=== PATIENT | female | born 1980 | race African-American/Black ===

== ENCOUNTER 2016-04-23 17:27 | Emergency (ER) | payer MEDICAID ==
[2016-04-23 17:42] VITALS: BP 122/64
[2016-04-23] MEDS ORDERED: ONDANSETRON 4 MG TAB.RAPDIS PO ONE (18:07)
--- NOTE | 2016-04-23 18:07 | ER Document Report ---
ED Medical Screen (RME) - General Stated Complaint: VOMITING Mode of Arrival: Ambulatory Information source: Patient Notes: Patient claims of nausea and vomiting since yesterday. Diarrhea started today. Patient does complain of some left-sided abdominal pain. No urinary symptoms. hx: Anemia, endometriosis I have greeted and performed a rapid initial assessment of this patient. A comprehensive ED assessment and evaluation of the patient, analysis of test results and completion of the medical decision making process will be conducted by additional ED providers. TRAVEL OUTSIDE OF THE [place] IN LAST 30 DAYS: No - Related Data Allergies/Adverse Reactions: latex [Latex] Allergy (Severe, Verified 04/23/16 18:04) contact dermatitis Penicillins Allergy (Severe, Verified 04/23/16 18:04) Edema erythromycin base Allergy (Verified 04/23/16 18:07) levofloxacin [From Levaquin] Allergy (Verified 04/23/16 18:04) strawberry Allergy (Verified 04/23/16 18:04) Past Medical History - Past Medical History Cardiac Medical History: Denies: Hx Coronary Artery Disease, Hx Heart Attack, Hx Hypertension Pulmonary Medical History: Denies: Hx Asthma, Hx Bronchitis, Hx COPD, Hx Pneumonia Neurological Medical History: Denies: Hx Cerebrovascular Accident, Hx Seizures Endocrine Medical History: Denies: Hx Diabetes Mellitus Type 1, Hx Diabetes Mellitus Type 2 Musculoskeltal Medical History: Denies Hx Arthritis Past Surgical History: Reports: Hx Gynecologic Surgery - Lap x 2 - Immunizations Hx Diphtheria, Pertussis, Tetanus Vaccination: Yes Physical Exam - Vital signs Vitals: Temp Pulse Resp BP Pulse Ox 98.2 F 66 22 H 122/64 100 04/23/16 17:39 04/23/16 17:39 04/23/16 17:39 04/23/16 17:39 04/23/16 17:39 - Abdominal Tenderness: Tender - Left lateral abdomen Course - Vital Signs Vital signs: Temp Pulse Resp BP Pulse Ox 98.2 F 66 22 H 122/64 100 04/23/16 17:39 04/23/16 17:39 04/23/16 17:39 04/23/16 17:39 04/23/16 17:39
[2016-04-23 19:07] LABS: ABSOLUTE EOSINOPHILS # (AUTO) 0.3 10^3/uL (0.0-0.6); ABSOLUTE LYMPHOCYTES (AUTO) 1.6 10^3/uL (0.5-4.7); ABSOLUTE MONOCYTES (AUTO) 0.6 10^3/uL (0.1-1.4); ABSOLUTE NEUT (AUTO) 3.7 10^3/uL (1.7-8.2); BASOPHILS % (AUTO) 0.6 % (0-2); EOSINOPHILS % (AUTO) 4.2 % (0-6); MEAN CORPUSCULAR HEMOGLOBIN 22.3 pg (27.0-33.4); MEAN CORPUSCULAR HGB CONC 31.1 g/dL (32.0-36.0); MEAN CORPUSCULAR VOLUME 72 fl (80-97); MONOCYTES % (AUTO) 9.6 % (3-13); RED BLOOD COUNT 4.47 10^6/uL (3.72-5.28); RED CELL DISTRIBUTION WIDTH 18.7 % (11.5-14.0); SEGMENTED NEUTROPHILS % (AUTO) 59.6 % (42-78); WHITE BLOOD COUNT 6.3 10^3/uL (4.0-10.5)
[2016-04-23 19:19] LABS: APPEARANCE,URINE CLEAR; BILIRUBIN,URINE NEGATIVE (NEGATIVE); GLUCOSE, URINE NEGATIVE (NEGATIVE); KETONES,URINE NEGATIVE (NEGATIVE); LEUKOCYTE ESTERASE,URINE NEGATIVE (NEGATIVE); NITRITE,URINE NEGATIVE (NEGATIVE); PROTEIN,URINE NEGATIVE (NEGATIVE); URINE SPECIFIC GRAVITY 1.016; UROBILINOGEN,URINE NEGATIVE mg/dL (<2.0)
[2016-04-23 19:29] LABS: ALANINE AMINOTRANSFERASE 20 U/L (9-52); ALBUMIN 3.7 g/dL (3.5-5.0); ALKALINE PHOSPHATASE 96 U/L (38-126); ANION GAP 8 (5-19); ASPARTATE AMINO TRANSFERASE 26 U/L (14-36); BILIRUBIN,TOTAL 0.4 mg/dL (0.2-1.3); BLOOD UREA NITROGEN 10 mg/dL (7-20); CALCIUM 9.5 mg/dL (8.4-10.2); CARBON DIOXIDE 30 mmol/L (22-30); CHLORIDE 100 mmol/L (98-107); CREATININE RESULT 0.79 mg/dL (0.52-1.25); GLUCOSE 83 mg/dL (75-110); LIPASE 32.2 U/L (23-300); POTASSIUM 4.1 mmol/L (3.6-5.0); SODIUM 138.3 mmol/L (137-145); TOTAL PROTEIN 7.1 g/dL (6.3-8.2)
[2016-04-23 21:16] LABS: URINE BARBITURATES SCREEN NEGATIVE; URINE METHADONE SCREEN NEGATIVE; URINE PHENCYCLIDINE SCREEN NEGATIVE
--- NOTE | 2016-04-23 21:23 | ER Document Report ---
ED GI/ - General Mode of Arrival: Ambulatory Information source: Patient TRAVEL OUTSIDE OF THE [place] IN LAST 30 DAYS: No - HPI Patient complains to provider of: Other - see narrative Associated symptoms: Other - see narrative Similar symptoms previously: Yes <PAULA PATTERSON - Last Filed: 04/23/16 23:31> <YUE FLOYD - Last Filed: 04/25/16 01:30> - General Chief Complaint: Nausea/Vomiting Stated Complaint: VOMITING Notes: Patient is a 35-year-old female that presents to the emergency department today with complaints of nausea, vomiting, and one episode of diarrhea which began approximately 3 days ago. Patient states 3 days ago her symptoms began with nausea however today she had vomit that appeared to be brown in color with associated abdominal pain. Patient states she also has a history of endometriosis so her abdominal pain is somewhat chronic during her menstrual cycle. Patient is being followed by [facility] for her endometriosis. Patient states she called her doctor and the nurse was concerned about the color of the vomit so she was told to come here. Patient appears to be in no distress. (PAULA PATTERSON) - Related Data Allergies/Adverse Reactions: latex [Latex] Allergy (Severe, Verified 04/23/16 18:04) contact dermatitis Penicillins Allergy (Severe, Verified 04/23/16 18:04) Edema erythromycin base Allergy (Verified 04/23/16 18:07) levofloxacin [From Levaquin] Allergy (Verified 04/23/16 18:04) strawberry Allergy (Verified 04/23/16 18:04) Past Medical History - General Information source: Patient - Social History Smoking Status: Never Smoker Cigarette use (# per day): No Chew tobacco use (# tins/day): No Frequency of alcohol use: None Drug Abuse: None Lives with: Family Family History: Reviewed & Not Pertinent Patient has suicidal ideation: No Patient has homicidal ideation: No Past Surgical History: Reports: Hx Gynecologic Surgery - Lap x 2 - Immunizations Hx Diphtheria, Pertussis, Tetanus Vaccination: Yes <PAULA PATTERSON - Last Filed: 04/23/16 23:31> Review of Systems - Review of Systems Constitutional: denies: Fever EENT: No symptoms reported Cardiovascular: No symptoms reported Respiratory: No symptoms reported Gastrointestinal: See HPI, Abdominal pain, Diarrhea, Nausea, Vomiting Genitourinary: No symptoms reported Female Genitourinary: No symptoms reported Musculoskeletal: No symptoms reported Skin: No symptoms reported Hematologic/Lymphatic: No symptoms reported Neurological/Psychological: No symptoms reported -: Yes All other systems reviewed and negative <PAULA PATTERSON - Last Filed: 04/23/16 23:31> Physical Exam <PAULA PATTERSON - Last Filed: 04/23/16 23:31> <YUE FLOYD - Last Filed: 04/25/16 01:30> - Vital signs Vitals: Temp Pulse Resp BP Pulse Ox 98.2 F 66 22 H 122/64 100 04/23/16 17:39 04/23/16 17:39 04/23/16 17:39 04/23/16 17:39 04/23/16 17:39 (PAULA PATTERSON) (YUE FLOYD) - Notes Notes: Physical Exam: General: Alert, appears well. HEENT: Normocephalic. Atraumatic. PERRL. Extraocular movements intact. Oropharynx clear. Broken blood vessels in posterior pharynx, no active bleeding. Neck: Supple. Non-tender. Respiratory: No respiratory distress. Clear and equal breath sounds bilaterally. Cardiovascular: Regular rate and rhythm. Abdominal: Normal Inspection. Non-tender. No distension. Normal Bowel Sounds. Back: Non-tender. No deformity or step off. Extremities: Moves all four extremities. Upper extremities: Normal inspection. Normal ROM. Lower extremities: No edema. Normal ROM. Neurological: Normal cognition. AAOx4. Normal speech. Psychological: Normal affect. Normal Mood. Skin: Warm. Dry. Normal color. (PAULA PATTERSON) Course - Laboratory Result Diagrams: 04/23/16 18:45 04/23/16 18:45 <PAULA PATTERSON - Last Filed: 04/23/16 23:31> - Laboratory Result Diagrams: 04/23/16 18:45 04/23/16 18:45 <YUE FLOYD - Last Filed: 04/25/16 01:30> - Re-evaluation Re-evalutation: 04/23/16 21:26 I personally performed the services described in the documentation, reviewed and edited the documentation which was dictated to my scribe in my presence, and it accurately records my words and actions. Patient presents emergency per with a chief complaint of nausea vomiting and diarrhea. She said she started last night with vomiting had several episodes of vomiting today after retching for 2-3 hours had specks of blood coming up in Center throat hurt. She also states she had initially said she had several episodes of diarrhea then said she had one or 2 episodes of diarrhea. She denies any blood in her stool she is not on blood thinners. On physical examination she is well-appearing nontoxic in no acute distress with stable vital signs. No acute abdominal guarding rebound rigidity pulsatile dullness or hernias. Patient has some broken blood vessels in the back of her throat which are not actively bleeding. Acute laboratory evaluation is negative. She was given 8 of Zofran nurse states no episodes of vomiting while she was in the emergency department. Patient significantly questioning management in terms of asking questions about the blood in the vomit and the color of the moment. I explained to her that after retching you can get torn blood vessels she also has spots in the back of her throat were some blood vessels were broken that can cause specks of bright red blood. She said that her doctor's office was very concerned about that. She said she had vomited she was going to take with her regular doctor's office tomorrow but didn't bring it here. I stated to her that there is a way to check to see if there is blood in there but I did not recommend and that would be doing an NG tube and guaiac. She states that she's having pain in the left side as well that she has a history of chronic endometriosis. I asked her who manages her chronic endometriosis and she [facility] asked her what they treated her with and she said narcotics but it's bad. Despite multiple explanations and spending time with the patient and answering her questions there seems to be a disconnect with her understanding the questions. She seems to be wanting something different or more but I can't ascertain that. She gets very argumentative and says just let me go home. She asks what she can take for her throat and I said you can take Tylenol or Motrin but I would not recommend it due to the vomiting. Patient requesting narcotic pain medication was a do not feel are appropriate in this situation with nausea vomiting diarrhea no acute abdominal findings and negative labs. I did instruct her follow-up with her primary care physician OB/ FL[facility]PERATIONS SPECIALIST physician in one to 2 days and discussed reasons for ED return sooner (YUE FLOYD) - Vital Signs Vital signs: Temp Pulse Resp BP Pulse Ox 98.2 F 66 22 H 122/64 100 04/23/16 17:39 04/23/16 17:39 04/23/16 17:39 04/23/16 17:39 04/23/16 17:39 (PAULA PATTERSON) (YUE FLOYD) - Laboratory Laboratory results interpreted by me: 04/23/16 04/23/16 18:45 18:45 Hgb 10.0 L Hct 32.0 L MCV 72 L MCH 22.3 L MCHC 31.1 L RDW 18.7 H Urine Blood SMALL H (PAULA PATTERSON) (YUE FLOYD) Discharge <PAULA PATTERSON - Last Filed: 04/23/16 23:31> <YUE FLOYD - Last Filed: 04/25/16 01:30> - Discharge Clinical Impression: Vomiting and diarrhea Abdominal pain Qualifiers: Abdominal location: lower abdomen, unspecified Qualified Code(s): R10.30 - Lower abdominal pain, unspecified Condition: Stable Disposition: HOME, SELF-CARE Additional Instructions: Abdominal Pain There are many causes of abdominal pain. Pain can mean a serious problem requiring surgery (such as appendicitis). It can also be an innocent problem that goes away on its own (such as a viral infection). Often, time must pass to determine the cause of pain. The physician does not feel that hospitalization is necessary, at present. Things may change within the next 24 hours. Call the doctor or come back for re- examination if any problems occur, such as: (1) Pain that becomes more severe, steady, or becomes concentrated in one specific area. Also, pain that is more severe with movement or coughing. (2) Vomiting that persists or becomes more frequent. (3) Blood in the vomitus, urine, or bowel movements. Blood in the stool may have a tarry or black appearance. (4) Shaking chills or fever greater than 100 degrees F. (5) The abdomen becomes more distended or swollen. (6) Bowel movements cease. (7) Failure to improve as expected. Vomiting Vomiting can be part of many illnesses. Most cases of vomiting are due to gastroenteritis, usually a viral infection in the intestinal tract. There is no specific treatment. The disease will end by itself. For now, the main danger to your child is dehydration. During the first few hours of the illness, give clear liquids, such as Pedialyte. Try to give small quantities frequently, such as a teaspoon of liquid every minute or about an ounce of fluids every five to ten minutes. Medications may be prescribed by the physician for special cases. After an hour or two of fluids without vomiting, add rice cereal, toast, applesauce, or bananas and other more solid foods to the clear liquids. Call the physician or go to the hospital if vomiting increases or blood appears in the bowel movement or vomitus; if your child fails to improve, or if signs of dehydration occur (no wet diapers for eight to twelve hours, tongue and mouth become dry, not acting as alert as usual). Diarrhea Diarrhea means frequent, watery stools. There are many causes. Any problem that keeps the intestinal tract from absorbing water from the stool can lead to diarrhea. A sudden new diarrhea problem is usually caused by a virus, food sensitivity, toxic bacteria, or drugs. In this case, we expect the problem to go away soon. Testing is done only if you seem seriously ill from the diarrhea. If you have chronic diarrhea, or diarrhea that keeps coming back, we need to find out why. Chronic diarrhea can be due to inflammation of the bowels such as Crohn's disease or ulcerative colitis, food sensitivity such as intolerance to lactose or wheat protein, irritable bowel syndrome, and other problems. If your diarrhea is a significant problem but it's not clear why you have it, we' ll refer you to a specialist for further testing. During an episode of diarrhea, drink small amounts (two to six ounces) of clear liquids (soft drinks, sport drinks, herb teas, broth, etc). Take fluids frequently to prevent dehydration. It's usually not a problem to take mild anti- diarrhea medication such as Kaopectate or Pepto-Bismol. As the diarrhea eases, advance to small amounts of bland food (mashed potato, toast) for 24 hours. Call the physician if blood appears in your vomit or stool, if vomiting lasts longer than 24 hours, if the abdominal pain worsens or becomes localized to one area, if you develop high fever, or if you become lightheaded and weak. Referrals: PRESTON PAYTON MD [Primary Care Provider] - Follow up as needed (in 1-2 days return to er sooner for increasing worsening or new symptoms ) Scribe Documentation - Scribe Written by Scribe:: Agustina Valentino, [id number] 04/23/16 acting as scribe for :: Sky <PAULA PATTERSON - Last Filed: 04/23/16 23:31>
== END 2016-04-23 21:30 | disposition home or self-care (01) ==
LOC: ER 17:27
DX: R10.30 Lower abdominal pain, unspecified (principal); R11.2 Nausea with vomiting, unspecified; R19.7 Diarrhea, unspecified
CPT/HCPCS: 99284; 36415; 83690; 84703; 85025; 80053; 81001; 80307; S0119

== ENCOUNTER 2016-04-24 16:53 | Observation (INO) | payer MEDICAID ==
[2016-04-24] MEDS: NORMAL SALINE 1000 ML 1,000 ML IV PRN (18:18)
[2016-04-24] MEDS ORDERED: INFLUENZA ADLT QUAD (36MOS+) 2016-17 VAC 0.5 ML SYR IM PRN (18:49)
[2016-04-24 19:00] LABS: HEMATOCRIT 31.4 % (36.0-47.0); HEMOGLOBIN 9.3 g/dL (12.0-15.5); HGB HCT DIFFERENCE -3.5; MEAN CORPUSCULAR HEMOGLOBIN 21.6 pg (27.0-33.4); MEAN CORPUSCULAR HGB CONC 29.6 g/dL (32.0-36.0); MEAN CORPUSCULAR VOLUME 73 fl (80-97); RED BLOOD COUNT 4.31 10^6/uL (3.72-5.28); WHITE BLOOD COUNT 7.4 10^3/uL (4.0-10.5)
[2016-04-24 19:07] LABS: ANION GAP 10 (5-19); BLOOD UREA NITROGEN 12 mg/dL (7-20); CALCIUM 9.6 mg/dL (8.4-10.2); CARBON DIOXIDE 28 mmol/L (22-30); CHLORIDE 104 mmol/L (98-107); CREATININE RESULT 0.83 mg/dL (0.52-1.25); GLUCOSE 89 mg/dL (75-110); POTASSIUM 3.7 mmol/L (3.6-5.0); SODIUM 142.1 mmol/L (137-145)
[2016-04-24] MEDS: ONDANSETRON HCL INJ/PF 4 MG/2 ML SDV IV PRN (20:28)
[2016-04-24] MEDS: MORPHINE SULFATE 10 MG/ML INJ IV PRN (22:05)
[2016-04-25] MEDS: NORMAL SALINE 1000 ML 1,000 ML IV PRN (04:44)
[2016-04-25] MEDS: ONDANSETRON HCL INJ/PF 4 MG/2 ML SDV IV PRN ×2 (04:44→13:11)
[2016-04-25] MEDS: MORPHINE SULFATE 10 MG/ML INJ IV PRN ×2 (04:44→11:19)
[2016-04-25] MEDS ORDERED: NALOXONE HCL INJ/PF 0.4 MG/1 ML SDV ONE (17:52)
[2016-04-25] MEDS ORDERED: PROMETHAZINE HCL INJ 25 MG/1 ML VIAL ONE (17:52)
[2016-04-25] MEDS ORDERED: FENTANYL CITRATE INJ/PF 100 MCG/2 ML AMPUL ONE (17:53)
[2016-04-25] MEDS ORDERED: GLUCAGON,HUMAN RECOMB 1 MG INJ ONE (17:53)
[2016-04-25] MEDS ORDERED: EPINEPHRINE INJ 1 MG/10 ML DISP.SYRIN ONE (17:53)
[2016-04-25] MEDS ORDERED: MIDAZOLAM 2 MG/2 ML INJ ONE (17:53)
[2016-04-25] MEDS ORDERED: FLUMAZENIL INJ 0.5 MG/5 ML VIAL IV ONE (17:53)
--- NOTE | 2016-04-25 19:11 | PDOC CONSULTATION ---
Consultation Consult Date: 04/24/16 History of Present Illness Admission Date/PCP: 04/24/16 16:53 PRESTON PriteshLUCINDA, History of Present Illness: This is a 35-year-old patient admitted with coffee-ground emesis and anemia. Patient had been in a fair state of health until 2 days before admission when she started vomiting. She actually had some nausea for about 3 days before vomiting started. She had vomited multiple times and it looked like coffee grounds each time. She has also been having some left upper quadrant pain for the same duration. There was no diarrhea or fever. On admission her hemoglobin was 9.3. She has a chronic history of iron deficiency anemia and her hemoglobin was 9.7 back in December 2015. She had an EGD, colonoscopy, and capsule endoscopy of her small bowel with no significant explanation for her anemia. She has menorrhagia and severe endometriosis. She has not been using any iron supplements but receives B-12 shots. Past Medical History Cardiac Medical History: Denies: Coronary Artery Disease, Myocardial Infarction, Hypertension Pulmonary Medical History: Denies: Asthma, Bronchitis, Chronic Obstructive Pulmonary Disease (COPD), Pneumonia Neurological Medical History: Denies: Seizures Endocrine Medical History: Denies: Diabetes Mellitus Type 1, Diabetes Mellitus Type 2 Musculoskeltal Medical History: Denies: Arthritis Hematology: Reports: Anemia Hematology History Note: Iron deficiency anemia Past Surgical History Past Surgical History: Colonoscopy and EGD in December 2015 Past Surgical History: Denies: Hysterectomy Social History Smoking Status: Never Smoker Frequency of Alcohol Use: None Hx Recreational Drug Use: No Drugs: None Hx Prescription Drug Abuse: No - Advance Directive Resuscitation Status: Full Code Family History Family History: Reviewed & Not Pertinent Parental Family History Reviewed: No Children Family History Reviewed: NA Sibling(s) Family History Reviewed.: NA Medication/Allergy Home Medications: Cetirizine HCl [Zyrtec 10 mg Tablet] 10 mg PO DAILY 04/24/16 Cyclobenzaprine HCl [Flexeril 10 mg Tablet] 10 mg PO Q8HP PRN 04/24/16 Fluocinonide [Lidex] 1 applic TP BID 04/24/16 Hydroxyzine HCl [Atarax 10 mg Tablet] 10 mg PO Q12HP PRN 04/24/16 Naproxen 500 mg PO Q12HP PRN 04/24/16 Allergies/Adverse Reactions: latex [Latex] Allergy (Severe, Verified 04/23/16 18:04) contact dermatitis Penicillins Allergy (Severe, Verified 04/23/16 18:04) Edema erythromycin base Allergy (Verified 04/23/16 18:07) levofloxacin [From Levaquin] Allergy (Verified 04/23/16 18:04) strawberry Allergy (Verified 04/23/16 18:04) Review of Systems All systems: reviewed and no additional remarkable complaints except as stated Physical Exam Vital Signs: Temp Pulse Resp BP Pulse Ox 98.5 F 91 22 H 119/73 100 04/25/16 17:11 04/25/16 18:50 04/25/16 18:50 04/25/16 18:50 04/25/16 18:50 Intake & Output 04/24/16 04/25/16 04/26/16 06:59 06:59 06:59 Intake Total 1660 220 Output Total 300 1200 Balance 1360 -980 Weight 89.2 kg Exam: General: Patient is alert and looks well. HEENT: There is pallor but no jaundice. PERRLA. Oropharynx normal Respiratory: No chest deformity. No respiratory distress. Chest wall palpitation was unremarkable. Breath sounds were normal Cardiovascular: Heart sounds 1 and 2 normal with no murmurs. Abdominal: Not distended. Soft and nontender. Liver and spleen not palpable. No ascites demonstrated. Bowel sounds active. Rectal examination was deferred. Extremities: No edema Neurological: Alert and oriented x4. Grossly nonfocal. Normal speech Skin: No significant rash Psychological: Normal affect Results Laboratory Results: 04/24/16 18:25 04/24/16 18:25 04/24/16 04/24/16 18:25 18:25 WBC 7.4 RBC 4.31 Hgb 9.3 L Hct 31.4 L MCV 73 L MCH 21.6 L MCHC 29.6 L RDW 19.0 H Plt Count 387 Sodium 142.1 Potassium 3.7 Chloride 104 Carbon Dioxide 28 Anion Gap 10 BUN 12 Creatinine 0.83 Est GFR ( Amer) > 60 Est GFR (Non-Af Amer) > 60 Glucose 89 Calcium 9.6 Assessment & Plan - Diagnosis (1) Hematemesis Qualifiers: Nausea presence: with nausea Qualified Code(s): K92.0 - Hematemesis ; R11.0 - Nausea Is this a current diagnosis for this admission?: YesPlan: She did have multiple episodes of vomiting that appeared to be coffee grounds. Her hemoglobin is low but this is not very different from her previous which was 9.6 back in December. Her hemoglobin was 10 one day before admission. Differential diagnoses include esophagitis, Patria-Garland tear, or gastric ulcers. She will undergo an EGD for further evaluation. She will remain on Zofran when necessary (2) Iron deficiency anemia due to chronic blood loss Is this a current diagnosis for this admission?: YesPlan: She needs to be on iron supplements upon discharge. Her ferritin was 12 about 6 months ago and this will be repeated now. She should follow up with her interactive media director (3) Abdominal pain Qualifiers: Abdominal location: lower abdomen, unspecified Qualified Code(s): R10.30 - Lower abdominal pain, unspecified
--- NOTE | 2016-04-25 19:12 | Operative Report ---
Operative Report DATE OF SURGERY: 04/25/16 Operative Report: Pre-op diagnosis: Vomiting and coffee grounds Post-op diagnosis: Antral gastritis Surgery: Esophagogastroduodenoscopy with biopsy Medications: Versed 2 mg Fentanyl 100 mcg IV push Tissue removed: Antral biopsy for pathology Procedure: After informed consent obtained from patient, the throat was sprayed with Hurricane and conscious sedation was achieved. The upper endoscope was inserted into the esophagus under direct vision and advanced into the stomach. The duodenum was entered and examined to the second part. Endoscope was then slowly pulled out of the patient as the mucosa was examined into details. Patient tolerated procedure well. Findings Esophagus: Normal Z-line at: Antrum: Mild erythema Body: Normal Fundus: Normal Duodenum first part: Normal Duodenum second part: Normal Plan: Await pathology. Prevacid daily for one month OPERATION: .
--- NOTE | 2016-04-25 20:20 | PDOC H&P ---
History of Present Illness Admission Date/PCP: 04/24/16 16:53 YAMILETHJUAN IZAGUIRRENARDA, History of Present Illness: Patient 35-year-old female, she came to the office without an appointment with complaint of vomiting for the last 2 days and it was coffee-ground vomitus. She told me she was in the emergency room last night and she said she was treated unprofessionally. Because she said she'll be vomiting coffee-ground material for the last 2-3 days, she was admitted directly into the hospital. She denies any passage of black tarry stool. She also complained of sore throat , in the office I inspected the throat, there areas of ulceration in the throat , cultures were taken in The office. She has a history of endometriosis Past Medical History GI Medical History: Reports: Gastroesophageal Reflux Disease Hematology: Reports: Anemia Past Surgical History Past Surgical History: Denies: Hysterectomy Social History Smoking Status: Never Smoker Frequency of Alcohol Use: None Hx Recreational Drug Use: No Drugs: None Hx Prescription Drug Abuse: No - Advance Directive Resuscitation Status: Full Code Family History Family History: Reviewed & Not Pertinent Parental Family History Reviewed: Yes Children Family History Reviewed: Yes Sibling(s) Family History Reviewed.: Yes Medication/Allergy Home Medications: Cetirizine HCl [Zyrtec 10 mg Tablet] 10 mg PO DAILY 04/24/16 Cyclobenzaprine HCl [Flexeril 10 mg Tablet] 10 mg PO Q8HP PRN 04/24/16 Fluocinonide [Lidex] 1 applic TP BID 04/24/16 Hydroxyzine HCl [Atarax 10 mg Tablet] 10 mg PO Q12HP PRN 04/24/16 Naproxen 500 mg PO Q12HP PRN 04/24/16 Allergies/Adverse Reactions: latex [Latex] Allergy (Severe, Verified 04/23/16 18:04) contact dermatitis Penicillins Allergy (Severe, Verified 04/23/16 18:04) Edema erythromycin base Allergy (Verified 04/23/16 18:07) levofloxacin [From Levaquin] Allergy (Verified 04/23/16 18:04) strawberry Allergy (Verified 04/23/16 18:04) Review of Systems Constitutional: ABSENT: chills, fever(s), headache(s), weight gain, weight loss Eyes: ABSENT: visual disturbances Ears: ABSENT: hearing changes Cardiovascular: ABSENT: chest pain, dyspnea on exertion, edema, orthropnea, palpitations Respiratory: ABSENT: cough, hemoptysis Gastrointestinal: PRESENT: abdominal pain, vomiting Genitourinary: ABSENT: dysuria, hematuria Musculoskeletal: ABSENT: joint swelling Integumentary: ABSENT: rash, wounds Neurological: ABSENT: abnormal gait, abnormal speech, confusion, dizziness, focal weakness, syncope Psychiatric: ABSENT: anxiety, depression, homidical ideation, suicidal ideation Endocrine: ABSENT: cold intolerance, heat intolerance, menstrual abnormalities, polydipsia, polyuria Hematologic/Lymphatic: ABSENT: easy bleeding, easy bruising, lymphadenopathy Physical Exam Vital Signs: Temp Pulse Resp BP Pulse Ox 98.5 F 60 15 115/65 96 04/25/16 17:11 04/25/16 19:20 04/25/16 19:20 04/25/16 19:20 04/25/16 19:20 Intake & Output 04/24/16 04/25/16 04/26/16 06:59 06:59 06:59 Intake Total 1660 220 Output Total 300 1200 Balance 1360 -980 Weight 89.2 kg General appearance: PRESENT: no acute distress Head exam: PRESENT: atraumatic, normocephalic Eye exam: PRESENT: conjunctiva pink, EOMI, PERRLA Throat exam: PRESENT: other - There is ulceration of the mucosa of the pharynx Neck exam: PRESENT: full ROM Respiratory exam: PRESENT: clear to auscultation jose luis Cardiovascular exam: PRESENT: RRR, +S1, +S2 GI/Abdominal exam: PRESENT: normal bowel sounds, soft Rectal exam: PRESENT: deferred Neurological exam: PRESENT: alert, awake, oriented to person, oriented to place , oriented to time, oriented to situation, CN II-XII grossly intact Psychiatric exam: PRESENT: appropriate affect, normal mood Skin exam: PRESENT: dry, intact, warm Results Laboratory Results: 04/24/16 18:25 04/24/16 18:25 Assessment & Plan - Diagnosis (1) Upper gastrointestinal hemorrhage Is this a current diagnosis for this admission?: YesPlan: She has vomiting with coffee-ground vomitus suggesting upper GI bleed. She is admitted into the hospital. GI consultation will be requested for upper endoscopy
[2016-04-25] MEDS ORDERED: CYCLOBENZAPRINE HCL 10 MG TABLET PO PRN (20:22)
[2016-04-25] MEDS ORDERED: HYDROXYZINE HCL 10 MG TABLET PO PRN (20:22)
--- NOTE | 2016-04-25 20:29 | PDOC DISCHARGE SUMMARY ---
General - Admit/Disc Date/PCP Admission Date/Primary Care Provider: 04/24/16 16:53 PRESTON PAYTON, Discharge Date: 04/25/16 - Discharge Diagnosis (1) Upper gastrointestinal hemorrhage Is this a current diagnosis for this admission?: Yes - Additional Information Resuscitation Status: Full Code Discharge Diet: As Tolerated Discharge Activity: Activity As Tolerated Home Medications: Cetirizine HCl [Zyrtec 10 mg Tablet] 10 mg PO DAILY 04/24/16 Cyclobenzaprine HCl [Flexeril 10 mg Tablet] 10 mg PO Q8HP PRN 04/24/16 Fluocinonide [Lidex] 1 applic TP BID 04/24/16 Hydroxyzine HCl [Atarax 10 mg Tablet] 10 mg PO Q12HP PRN 04/24/16 Dexlansoprazole [Dexilant 60 mg Capsule] 60 mg PO DAILY #30 cap. 04/25/16 History of Present Illness History of Present Illness: Patient 35-year-old female, she came to the office without an appointment with complaint of vomiting for the last 2 days and it was coffee-ground vomitus. She told me she was in the emergency room last night and she said she was treated unprofessionally. Because she said she was vomiting coffee-ground material for the last 2-3 days, she was admitted directly into the hospital. She denies any passage of black tarry stool. She also complained of sore throat , in the office I inspected the throat, there are areas of ulceration in the throat, cultures were taken in The office. She has a history of endometriosis Hospital Course Hospital Course: Patient was admitted because of suspected upper GI bleed, she has microcytic anemia with 9, hemoglobin. She was seen by GI and she had upper GI endoscopy done today, he showed mild erythema in the stomach, otherwise it was normal. EGD. Physical Exam Vital Signs: Temp Pulse Resp BP Pulse Ox 98.5 F 60 15 115/65 96 04/25/16 17:11 04/25/16 19:20 04/25/16 19:20 04/25/16 19:20 04/25/16 19:20 Intake & Output 04/24/16 04/25/16 04/26/16 06:59 06:59 06:59 Intake Total 1660 220 Output Total 300 1200 Balance 1360 -980 Weight 89.2 kg General appearance: PRESENT: no acute distress, well-developed, well-nourished Head exam: PRESENT: atraumatic, normocephalic Eye exam: PRESENT: conjunctiva pink, EOMI, PERRLA Ear exam: PRESENT: normal external ear exam Mouth exam: PRESENT: moist, tongue midline Neck exam: PRESENT: full ROM Cardiovascular exam: PRESENT: RRR, +S1, +S2 GI/Abdominal exam: PRESENT: normal bowel sounds, soft Rectal exam: PRESENT: deferred Neurological exam: PRESENT: alert, awake, oriented to person, oriented to place , oriented to time, oriented to situation, CN II-XII grossly intact Psychiatric exam: PRESENT: appropriate affect, normal mood Results Laboratory Results: 04/24/16 18:25 04/24/16 18:25 04/25/16 19:48 Retic Count (auto) 1.78 Absolute Retic 0.070
[2016-04-25 20:58] LABS: FERRITIN 8.47 ng/mL (6.2-137.0)
[2016-04-25 21:29] LABS: FOLATE 9.43 ng/mL (>2.76)
[2016-04-25] MEDS ORDERED: CETIRIZINE 10 MG TABLET PO SCH (22:00)
[2016-04-25] MEDS ORDERED: ONDANSETRON HCL INJ/PF 4 MG/2 ML SDV ONE (22:26)
[2016-04-25] MEDS: FLUOCINONIDE 0.05% CREAM 15 GM TP SCH (22:31)
[2016-04-26] MEDS: MORPHINE SULFATE 10 MG/ML INJ IV PRN (10:02)
[2016-04-26] MEDS: ONDANSETRON HCL INJ/PF 4 MG/2 ML SDV IV PRN (10:02)
[2016-04-26 15:51] VITALS: BP 108/56
[2016-04-26] MEDS: FLUOCINONIDE 0.05% CREAM 15 GM TP SCH (17:01)
[2016-04-29 15:37] LABS: FOL RBC HEMATOCRIT 28.7 % (34.0-46.6); FOLATE HEMOLYSATE 267.3 ng/mL (Not Estab.)
[2016-04-30 07:12] LABS: FOLATE RBC 3 931 ng/mL (>498)
== END 2016-04-26 17:00 | disposition home or self-care (01) ==
LOC: 4N 16:53
PROVIDERS: ADMIT Internal Medicine; ATTEND Internal Medicine
PROC: 0DB68ZX Excision of Stomach, Via Natural or Artificial Opening Endoscopic, Diagnostic (ICD-10-PCS; principal; 2016-04-24)
DX: K29.50 Unspecified chronic gastritis without bleeding (principal); D50.0 Iron deficiency anemia secondary to blood loss (chronic); K92.0 Hematemesis; R10.30 Lower abdominal pain, unspecified; K21.9 Gastro-esophageal reflux disease without esophagitis; Z79.899 Other long term (current) drug therapy; Z88.0 Allergy status to penicillin; Z88.1 Allergy status to other antibiotic agents; Z91.040 Latex allergy status
CPT/HCPCS: 43239; 36415 ×2; 82607; 82728; 82746; 84702; 83540; 83550; 85027; 82747; 85045; 80048; 84466; 88342 ×2; 88305 ×2; G0378 ×3; G0379; J2250; J3490 ×3; J3010; J2270 ×3; J2405 ×3; J7030 ×2; J0171; J1610; J2310; J2550

== ENCOUNTER → 2016-05-27 | Outpatient (CLI) | payer MEDICAID | LOC: RAD 16:23 | PROVIDERS: ATTEND Internal Medicine Gastroenterology | DX: R10.32 Left lower quadrant pain (principal); R19.7 Diarrhea, unspecified | CPT/HCPCS: 74177 ==

== ENCOUNTER → 2016-07-04 | Outpatient (CLI) | payer MEDICAID ==
--- NOTE | 2016-07-04 12:50 | XCELERA REPORT ---
[address] [address] Lower Extremity Venous Evaluation Name: BEBETO MAGANA Age: 35 yrs Gender: Female : 1980 Patient Status: Outpatient Patient Location: Study Date: 07/04/2016 10:32 AM Procedure: Color flow and duplex imaging of the veins of the left lower extremity as well as the right Common Femoral vein. Reason For Study: LLE EDEMA Ordering Physician: PRESTON PAYTON Performed By: Mora Ohara Right Sided Venous Evaluation The right common femoral vein is fully compressible. Spontaneous and phasic flow is present in the right common femoral vein. Left Sided Venous Evaluation Normal vessel filling wall to wall, compression and augmentation as well as Colour flow down to the infrageniculate veins. Interpretation Summary No duplex evidence of DVT or obstruction in the left lower extremity nor in the right Common Femoral vein. : PRESTON PAYTON > Oleg Chacon
== END ==
LOC: SP 09:54
PROVIDERS: ATTEND Internal Medicine
DX: R60.9 Edema, unspecified (principal)
CPT/HCPCS: 93971

== ENCOUNTER 2016-08-19 09:38 | Day surgery (SDC) | payer MEDICAID ==
[2016-08-15 10:54] LABS: HEMATOCRIT 34.8 % (36.0-47.0); HEMOGLOBIN 10.7 g/dL (12.0-15.5); HGB HCT DIFFERENCE -2.7; MEAN CORPUSCULAR HEMOGLOBIN 22.1 pg (27.0-33.4); MEAN CORPUSCULAR HGB CONC 30.7 g/dL (32.0-36.0); MEAN CORPUSCULAR VOLUME 72 fl (80-97); RED BLOOD COUNT 4.84 10^6/uL (3.72-5.28); RED CELL DISTRIBUTION WIDTH 19.4 % (11.5-14.0); WHITE BLOOD COUNT 6.7 10^3/uL (4.0-10.5)
[2016-08-15 11:03] LABS: APPEARANCE,URINE CLEAR; BILIRUBIN,URINE NEGATIVE (NEGATIVE); GLUCOSE, URINE NEGATIVE (NEGATIVE); KETONES,URINE NEGATIVE (NEGATIVE); LEUKOCYTE ESTERASE,URINE NEGATIVE (NEGATIVE); NITRITE,URINE NEGATIVE (NEGATIVE); PROTEIN,URINE 100 mg/dL (NEGATIVE); URINE SPECIFIC GRAVITY 1.027; UROBILINOGEN,URINE NEGATIVE mg/dL (<2.0)
[~2016-08-19 09:38] MED LIST: CLINDAMYCIN 900 MG/D5W RTU 50 ML IV PRN; GENTAMICIN SULFATE 120 MG in DEXTROSE 5%-WATER 100 ML IV PRN; KETOROLAC TROMETHAMINE 60 MG/2 ML SDV ONE; LACTATED RINGERS 1000 ML IV PRN; LIDOCAINE 2% INJ-PF (20 MG/ML) 10 ML AMPUL ONE; ONDANSETRON HCL INJ/PF 4 MG/2 ML SDV ONE
[2016-08-19] MEDS ORDERED: ACETAMINOPHEN 0 ML IV ONE (10:31)
[2016-08-19] MEDS ORDERED: MIDAZOLAM 2 MG/2 ML INJ ONE (10:31)
[2016-08-19] MEDS ORDERED: FENTANYL CITRATE INJ/PF 250 MCG/5 ML AMPULE ONE (10:31)
[2016-08-19] MEDS ORDERED: DEXMEDETOMIDINE INJ 80 MCG/20 ML VIAL IV ONE (10:31)
[2016-08-19] MEDS ORDERED: PROPOFOL INJ 200 MG/20 ML VIAL IV ONE (10:31)
[2016-08-19] MEDS ORDERED: ACETAMINOPHEN 100 ML IV ONE (10:32)
[2016-08-19] MEDS ORDERED: SCOPOLAMINE HYDROBROMIDE 1.5 MG PATCH.TD72 ONE (10:51)
[2016-08-19] MEDS ORDERED: ONDANSETRON HCL INJ/PF 4 MG/2 ML SDV IV PRN (11:53)
[2016-08-19] MEDS ORDERED: PROMETHAZINE HCL INJ 25 MG/1 ML VIAL IV PRN ×2 (11:53)
[2016-08-19] MEDS ORDERED: OXYCODONE-ACETAMINOPHEN 5-325 MG TABLET PO PRN ×2 (11:53)
[2016-08-19] MEDS ORDERED: DIPHENHYDRAMINE HCL 50 MG/ML VIAL IV PRN (11:53)
[2016-08-19] MEDS ORDERED: MEPERIDINE HCL/PF INJ 25 MG/1 ML DISP.SYRIN IV PRN (11:53)
[2016-08-19] MEDS ORDERED: FENTANYL CITRATE INJ/PF 100 MCG/2 ML AMPUL IV PRN ×3 (11:53)
[2016-08-19] MEDS ORDERED: MORPHINE SULFATE 10 MG/ML INJ IV PRN (11:53)
[2016-08-19] MEDS ORDERED: RINGERS SOLUTION,LACTATED 1,000 ML IV PRN (12:23)
[2016-08-19] MEDS ORDERED: HYDROMORPHONE HCL INJ/PF 2 MG/ML AMPULE IV PRN (12:23)
[2016-08-19] MEDS ORDERED: OXYCODONE HCL IR 5 MG TABLET PO PRN ×2 (12:24)
[2016-08-19] MEDS ORDERED: FENTANYL CITRATE INJ/PF 100 MCG/2 ML AMPUL ONE ×2 (12:37→12:51)
[2016-08-19] MEDS ORDERED: ONDANSETRON HCL INJ/PF 4 MG/2 ML SDV ONE (12:38)
--- NOTE | 2016-08-19 12:53 | OPERATIVE REPORT E ---
Operative Report NAME: BEBETO MAGANA : 1980 AGE: 35Y DATE OF SURGERY: 08/19/2016 ROOM: PREOPERATIVE DIAGNOSIS: Abnormal uterine bleeding refractory to medical management. POSTOPERATIVE DIAGNOSES: 1. Abnormal uterine bleeding refractory to medical management. 2. Probable endometrial polyp. OPERATION PERFORMED: Hysteroscopy, D and C. SURGEON: IKE JIMENEZ M.D. ANESTHESIA: Conscious sedation. ESTIMATED BLOOD LOSS: 5 mL. SPECIMEN TO PATHOLOGY: Endometrial curettings. FINDINGS: The endometrial cavity appeared fairly clean except for an area on the right uterine sidewall which appeared to be polypoid in nature. It appeared benign. There was no atypical vasculature noted on it. DESCRIPTION OF PROCEDURE: After discussing risks, benefits, and alternatives of the procedure and obtaining informed consent, the patient was taken to the operating room where conscious sedation was achieved. She was positioned in a dorsal lithotomy position, prepped and draped in the usual standard fashion. The bladder was drained via in-and-out catheterization. A speculum was placed at the vagina and the anterior aspect of the cervix was grasped with a single-tooth tenaculum. The cervix was serially dilated to allow for passage of the hysteroscope. Hysteroscopy was performed with the findings noted above. The hysteroscope was removed and a curette was placed and the cavity curetted until it felt clean. The hysteroscope was replaced. A very small amount of tissue was still noted on the right uterine sidewall and the curette was again used until it felt clean. The hysteroscope was replaced and the cavity appeared clean. The hysteroscope was removed. The tenaculum was removed and hemostasis assured. The speculum was removed and the patient was taken to recovery in stable condition. All sponge, needle, lap and instrument counts were correct x2. DICTATING PHYSICIAN: IKE JIMENEZ M.D. [id number] PHY#: [id number] ID: [id number] JOB#: [id number] ACCT: [id number] cc:IKE JIMENEZ M.D. >
[2016-08-19 14:42] VITALS: BP 114/70
== END 2016-08-19 14:45 | disposition home or self-care (01) ==
LOC: OROUT 09:38
PROVIDERS: ATTEND Specialist
PROC: 0UDB8ZX Extraction of Endometrium, Via Natural or Artificial Opening Endoscopic, Diagnostic (ICD-10-PCS; principal; 2016-08-19 11:45)
DX: N84.0 Polyp of corpus uteri (principal); N93.9 Abnormal uterine and vaginal bleeding, unspecified; D64.9 Anemia, unspecified; R03.0 Elevated blood-pressure reading, without diagnosis of hypertension; Z79.899 Other long term (current) drug therapy; Z88.0 Allergy status to penicillin; Z88.1 Allergy status to other antibiotic agents; Z91.040 Latex allergy status
CPT/HCPCS: 36415; 85027; 81025; 81001; 88305 ×2; 58558; J2250; J1885; J3010 ×2; J1580; J3490 ×3; J2405; J2704; J0131; 952

== ENCOUNTER 2016-08-27 17:00 | Emergency (ER) | payer MEDICAID ==
[2016-08-27] MEDS ORDERED: METOCLOPRAMIDE HCL INJ/PF 10 MG/2 ML SDV IV ONE (19:11)
[2016-08-27] MEDS ORDERED: DIPHENHYDRAMINE HCL 50 MG/ML VIAL IV ONE (19:11)
[2016-08-27] MEDS ORDERED: NORMAL SALINE 1000 ML 1,000 ML IV ONE (19:11)
[2016-08-27] MEDS ORDERED: HYDROMORPHONE HCL INJ/PF 2 MG/ML AMPULE IV ONE (19:11)
--- NOTE | 2016-08-27 19:14 | ER Document Report ---
ED Medical Screen (RME) - General TRAVEL OUTSIDE OF THE [place] IN LAST 30 DAYS: No <EDIS RAMIREZ - Last Filed: 08/27/16 19:34> <NIR LEVINE - Last Filed: 08/27/16 20:36> - General Chief Complaint: Nausea/Vomiting Stated Complaint: POST OP CONCERNS,VOMITING,SENT BY DOCTOR Time Seen by Provider: 08/27/16 18:49 Notes: 35-year-old female presents to the emergency department for vomiting and right sided abdominal pain. Patient had a hysteroscope with D&C, and polypectomy on . Patient has had vomiting since 08/21/16. Patient also has some frequently urination and states she has been drinking [employer] k[employer] and water. Patient had some nausea before her surgery. Patient has also had some fevers of 101 F yesterday. Patient had hematemesis x1. Patient's surgeon was Dr. Addison. Patient's primary care physician is Dr. Portillo. Patient has also seen Dr. Maddox in the past. (EDIS RAMIREZ) Sent in from Dr. Addison's office. (NIR LEVINE) - Related Data Allergies/Adverse Reactions: latex [Latex] Allergy (Severe, Verified 08/27/16 18:49) contact dermatitis Penicillins Allergy (Severe, Verified 08/27/16 18:49) Edema erythromycin base Allergy (Verified 08/27/16 18:49) levofloxacin [From Levaquin] Allergy (Verified 08/27/16 18:49) metronidazole [From Flagyl] Allergy (Verified 08/27/16 18:49) Past Medical History - Past Medical History Cardiac Medical History: Denies: Hx Coronary Artery Disease, Hx Heart Attack, Hx Hypertension Pulmonary Medical History: Denies: Hx Asthma, Hx Bronchitis, Hx COPD, Hx Pneumonia Neurological Medical History: Denies: Hx Cerebrovascular Accident, Hx Seizures Endocrine Medical History: Denies: Hx Diabetes Mellitus Type 1, Hx Diabetes Mellitus Type 2 Renal/ Medical History: Denies: Hx Peritoneal Dialysis GI Medical History: Reports: Hx Gastroesophageal Reflux Disease Musculoskeltal Medical History: Denies Hx Arthritis Past Surgical History: Reports: Hx Gynecologic Surgery - Lap x 2. Denies: Hx Hysterectomy - Immunizations Hx Diphtheria, Pertussis, Tetanus Vaccination: Yes <EDIS RAMIREZ - Last Filed: 08/27/16 19:34> Physical Exam <EDIS RAMIREZ - Last Filed: 08/27/16 19:34> <NIR LEVINE - Last Filed: 08/27/16 20:36> - Vital signs Vitals: Temp Pulse Resp BP Pulse Ox 98.2 F 87 18 139/99 H 100 08/27/16 17:40 08/27/16 17:40 08/27/16 17:40 08/27/16 17:40 08/27/16 17:40 - Notes Notes: GENERAL: Alert, interacts well. Appears uncomfortable. LUNGS: Clear to auscultation bilaterally, no wheezes, rales, or rhonchi. No respiratory distress. HEART: Regular rate and rhythm. No murmurs, gallops, or rubs. ABDOMEN: LUQ tenderness to palpation. NEUROLOGICAL: Alert and oriented x3. Normal speech. (EDIS RAMIREZ) Course - Laboratory Result Diagrams: 08/27/16 19:35 08/27/16 19:35 <NIR LEVINE - Last Filed: 08/27/16 20:36> - Vital Signs Vital signs: Temp Pulse Resp BP Pulse Ox 98.2 F 87 18 139/99 H 100 08/27/16 17:40 08/27/16 17:40 08/27/16 17:40 08/27/16 17:40 08/27/16 17:40 - Laboratory Laboratory results interpreted by me: 08/27/16 08/27/16 19:35 19:35 WBC 10.6 H Hgb 10.9 L Hct 35.4 L MCV 70 L MCH 21.6 L MCHC 30.9 L RDW 19.5 H Urine Blood MODERATE H Ur Leukocyte Esterase TRACE H Scribe Documentation - Scribe Written by Scribe:: Agustina Rodriguez, 08/27/16 19:40 acting as scribe for :: Annia <EDIS RAMIREZ - Last Filed: 08/27/16 19:34>
[2016-08-27 20:11] LABS: ABSOLUTE BASOPHILS # (AUTO) 0.1 10^3/uL (0.0-0.2); ABSOLUTE EOSINOPHILS # (AUTO) 0.4 10^3/uL (0.0-0.6); ABSOLUTE LYMPHOCYTES (AUTO) 2.7 10^3/uL (0.5-4.7); ABSOLUTE NEUT (AUTO) 6.5 10^3/uL (1.7-8.2); BASOPHILS % (AUTO) 0.8 % (0-2); HEMATOCRIT 35.4 % (36.0-47.0); HEMOGLOBIN 10.9 g/dL (12.0-15.5); HGB HCT DIFFERENCE -2.7; LYMPHOCYTES % (AUTO) 25.3 % (13-45); MEAN CORPUSCULAR HEMOGLOBIN 21.6 pg (27.0-33.4); MEAN CORPUSCULAR HGB CONC 30.9 g/dL (32.0-36.0); MEAN CORPUSCULAR VOLUME 70 fl (80-97); RED BLOOD COUNT 5.05 10^6/uL (3.72-5.28); RED CELL DISTRIBUTION WIDTH 19.5 % (11.5-14.0); SEGMENTED NEUTROPHILS % (AUTO) 60.9 % (42-78); WHITE BLOOD COUNT 10.6 10^3/uL (4.0-10.5)
[2016-08-27 20:22] LABS: APPEARANCE,URINE SLIGHTLY-CLOUDY; BILIRUBIN,URINE NEGATIVE (NEGATIVE); GLUCOSE, URINE NEGATIVE (NEGATIVE); KETONES,URINE NEGATIVE (NEGATIVE); LEUKOCYTE ESTERASE,URINE TRACE (NEGATIVE); NITRITE,URINE NEGATIVE (NEGATIVE); PROTEIN,URINE NEGATIVE (NEGATIVE); URINE SPECIFIC GRAVITY 1.016; UROBILINOGEN,URINE NEGATIVE mg/dL (<2.0)
[2016-08-27 20:35] LABS: ALANINE AMINOTRANSFERASE 39 U/L (9-52); ALBUMIN 4.4 g/dL (3.5-5.0); ALKALINE PHOSPHATASE 140 U/L (38-126); ANION GAP 10 (5-19); ASPARTATE AMINO TRANSFERASE 48 U/L (14-36); BILIRUBIN,DIRECT 0.4 mg/dL (0.0-0.4); BILIRUBIN,TOTAL 0.5 mg/dL (0.2-1.3); BLOOD UREA NITROGEN 16 mg/dL (7-20); CARBON DIOXIDE 27 mmol/L (22-30); CHLORIDE 103 mmol/L (98-107); CREATININE RESULT 0.93 mg/dL (0.52-1.25); GLUCOSE 92 mg/dL (75-110); LIPASE 97.2 U/L (23-300); POTASSIUM 4.4 mmol/L (3.6-5.0); SODIUM 140.4 mmol/L (137-145); TOTAL PROTEIN 8.4 g/dL (6.3-8.2)
[2016-08-27 21:06] VITALS: BP 123/63
--- NOTE | 2016-08-27 21:06 | RADIOLOGY REPORT (SQ) ---
EXAM DESCRIPTION: ACUTE ABDOMEN SERIES COMPLETED DATE/TIME: 08/27/2016 8:54 pm REASON FOR STUDY: vomiting, post-op, r/o free air COMPARISON: None. NUMBER OF VIEWS: Three views. TECHNIQUE: Frontal chest, supine abdomen and upright/decubitus abdomen radiographic images acquired. LIMITATIONS: None. FINDINGS: CHEST: Lungs clear of infiltrates. FREE AIR: None. No abnormal gas collections. BOWEL GAS PATTERN: There is large amount of stool throughout the colon. No evidence of mechanical ob struction. CALCIFICATIONS: No suspicious calcifications. HARDWARE: None in the abdomen. SOFT TISSUES: No gross mass or suggestion of organomegaly. BONES: No acute fracture. No worrisome bone lesions. OTHER: No other significant finding. IMPRESSION: Constipation. No other significant findings. TECHNICAL DOCUMENTATION: JOB ID: [id number] [employer]- All Rights Reserved
[2016-08-27] MEDS ORDERED: ONDANSETRON HCL INJ/PF 4 MG/2 ML SDV IV ONE (21:20)
--- NOTE | 2016-08-27 21:20 | ER Document Report ---
ED GI/ - General Chief Complaint: Nausea/Vomiting Stated Complaint: POST OP CONCERNS,VOMITING,SENT BY DOCTOR Time Seen by Provider: 08/27/16 18:49 Notes: Patient is a 35-year-old female, past medical history chronic abdominal pain, chronic nausea and vomiting, presents with increased nausea and vomiting for the past 8 days. 6 days ago she had a hysteroscopy by Dr. Momin. She was having nausea prior to the surgery. She was discharged home on Percocet, Zofran and Phenergan. Patient has had only 2 very small hard bowel movements since the surgery. She is not on a stool softener. Denies hematemesis, urinary symptoms, vaginal bleeding, flank pain, fevers or headache TRAVEL OUTSIDE OF THE [place] IN LAST 30 DAYS: No - Related Data Allergies/Adverse Reactions: latex [Latex] Allergy (Severe, Verified 08/27/16 18:49) contact dermatitis Penicillins Allergy (Severe, Verified 08/27/16 18:49) Edema erythromycin base Allergy (Verified 08/27/16 18:49) levofloxacin [From Levaquin] Allergy (Verified 08/27/16 18:49) metronidazole [From Flagyl] Allergy (Verified 08/27/16 18:49) Past Medical History - General Information source: Patient - Social History Smoking Status: Unknown if Ever Smoked Family History: Reviewed & Not Pertinent - Past Medical History Cardiac Medical History: Denies: Hx Coronary Artery Disease, Hx Heart Attack, Hx Hypertension Pulmonary Medical History: Denies: Hx Asthma, Hx Bronchitis, Hx COPD, Hx Pneumonia Neurological Medical History: Denies: Hx Cerebrovascular Accident, Hx Seizures Endocrine Medical History: Denies: Hx Diabetes Mellitus Type 1, Hx Diabetes Mellitus Type 2 Renal/ Medical History: Denies: Hx Peritoneal Dialysis GI Medical History: Reports: Hx Gastroesophageal Reflux Disease Musculoskeltal Medical History: Denies Hx Arthritis Past Surgical History: Reports: Hx Gynecologic Surgery - Lap x 2. Denies: Hx Hysterectomy - Immunizations Hx Diphtheria, Pertussis, Tetanus Vaccination: Yes Review of Systems - Review of Systems Notes: REVIEW OF SYSTEMS: CONSTITUTIONAL: -fevers, -chills EENT: -eye pain, -difficulty swallowing, -nasal congestion CARDIOVASCULAR:-chest pain, -syncope. RESPIRATORY: -cough, -SOB GASTROINTESTINAL: +abdominal pain, +nausea, +vomiting, +constipation, -diarrhea GENITOURINARY: -dysuria, -hematuria MUSCULOSKELETAL: -back pain, -neck pain SKIN: -rash or skin lesions. HEMATOLOGIC: -easy bruising or bleeding. LYMPHATIC: -swollen, enlarged glands. NEUROLOGICAL: -altered mental status or loss of consciousness, -headache, - neurologic symptoms PSYCHIATRIC: -anxiety, -depression. ALL OTHER SYSTEMS REVIEWED AND NEGATIVE. Physical Exam - Vital signs Vitals: Temp Pulse Resp BP Pulse Ox 98.2 F 87 18 139/99 H 100 08/27/16 17:40 08/27/16 17:40 08/27/16 17:40 08/27/16 17:40 08/27/16 17:40 - Notes Notes: PHYSICAL EXAMINATION: GENERAL: Well-appearing, well-nourished and in no acute distress. HEAD: Atraumatic, normocephalic. EYES: Pupils equal round and reactive to light, extraocular movements intact, sclera anicteric, conjunctiva are normal. ENT: nares patent, oropharynx clear without exudates. Moist mucous membranes. NECK: Normal range of motion, supple without lymphadenopathy LUNGS: Breath sounds clear to auscultation bilaterally and equal. No wheezes rales or rhonchi. HEART: Regular rate and rhythm without murmurs ABDOMEN: Soft, nontender, normoactive bowel sounds. No guarding, no rebound. No masses appreciated. EXTREMITIES: Normal range of motion, no pitting or edema. No cyanosis. NEUROLOGICAL: Cranial nerves grossly intact. Normal speech, normal gait. Normal sensory and motor exams. PSYCH: Normal mood, normal affect. SKIN: Warm, Dry, normal turgor, no rashes or lesions noted. Course - Re-evaluation Re-evalutation: Pt's abdomen is soft and nontender. After fluids, Reglan and Zofran, patient is tolerating fluids without vomiting. Obstruction series shows evidence of constipation. Patient is taking Percocet, but no stool softeners or enemas. With the nontender abdomen and normal vitals, do not suspect a complication from her surgery. For follow-up with her surgeon for further evaluation and treatment - Vital Signs Vital signs: Temp Pulse Resp BP Pulse Ox 98.2 F 87 17 123/63 100 08/27/16 17:40 08/27/16 17:40 08/27/16 21:05 08/27/16 21:01 08/27/16 17:40 - Laboratory Result Diagrams: 08/27/16 19:35 08/27/16 19:35 Laboratory results interpreted by me: 08/27/16 08/27/16 08/27/16 19:35 19:35 19:35 WBC 10.6 H Hgb 10.9 L Hct 35.4 L MCV 70 L MCH 21.6 L MCHC 30.9 L RDW 19.5 H AST 48 H Alkaline Phosphatase 140 H Total Protein 8.4 H Urine Blood MODERATE H Ur Leukocyte Esterase TRACE H Discharge - Discharge Clinical Impression: Nausea & vomiting Qualifiers: Vomiting type: unspecified Vomiting Intractability: non-intractable Qualified Code(s): R11.2 - Nausea with vomiting, unspecified Constipation Qualifiers: Constipation type: unspecified constipation type Qualified Code(s): K59.00 - Constipation, unspecified Condition: Stable Disposition: HOME, SELF-CARE Additional Instructions: VOMITING: Vomiting (or nausea without vomiting) can be caused by many other different problems. It can mean that something's wrong with the stomach, such as ulcers or inflammation or the intestinal tract, such as appendicitis. But it can also be a symptom of a problem that has nothing to do with the stomach or intestines. Vomiting is common with severe headaches, earaches, tonsillitis, and kidney infections, etc. We see it with pneumonia or heart attacks. Drugs can cause nausea and vomiting. Many abdominal problems cause vomiting; for example, gallstones, kidney stones, pancreatitis, and intestinal obstruction ( blocked bowels). In most cases, curing the vomiting depends on fixing the problem that caused it. For temporary relief, we may use an anti-nausea medicine. For home use, we can prescribe suppositories, chewable pills, pills that dissolve in the mouth, or liquid anti-nausea drugs. If the vomiting seems to be caused by a problem in the stomach, acid-suppressing drugs may be prescribed as well. It's important to avoid dehydration. Sip small amounts of clear liquids ( soft drinks, tea, broth, etc) . Try to take fluids frequently even if you are vomiting to prevent dehydration. Take increasing amounts of fluid and when liquids are being consumed successfully, advance to small amounts of bland food (toast, soups, mashed potatoes, etc.) until you are able to resume a regular diet. Avoid aspirin, tobacco, and alcohol. If the vomiting worsens, if the problem that's making you vomit worsens, or if there's evidence of bleeding in the stomach (such as black, tarry stool, or bloody or black vomit), you should return immediately. Also, return if abdominal pain worsens or becomes localized to one area or you develop high fever. Call your doctor if you aren't improved in 24 hours. INTRAVENOUS (I V) FLUIDS: As part of your care today, you received intravenous (IV) fluids. IV fluids are administered to patients who are dehydrated or to those who have certain chemical (electrolyte) abnormalities that need correcting. ANTINAUSEA MEDICATION: You have been given a medication to suppress nausea and vomiting. This type of medication can be given as a shot, pill, or suppository. It will usually last for many hours. Pills and shots usually last six to eight hours. For the typical illness, only one or two doses of the medication may be necessary. Mild lightheadedness may occur. This type of medicine can cause drowsiness. Do not drive or operate dangerous machinery while under its influence. Do not mix with alcohol. See your doctor at once if you have muscle spasms or tightness, or uncontrollable motions (particularly of the neck, mouth, or jaw). Persistent vomiting or severe lightheadedness should also be evaluated by the physician. REGLAN (METOCLOPRAMIDE): Reglan has been prescribed. This medicine affects the stomach and intestines. It can be used to treat nausea and vomiting, to prevent reflux of stomach acid up into the esophagus, or to increase the contractions of the stomach and intestines. It is often prescribed for esophagitis, and for paralysis of the stomach in diabetics. Reglan can cause either mild restlessness or drowsiness. You should contact the doctor at once if you become extremely restless, anxious, or cannot sleep, or if you develop uncontrollable motions of the lips, tongue, or jaw. Do not take alcohol with this medicine. Do not drive or operate machinery until you have been taking this medicine long enough to know how it affects you. Call the doctor if you develop abdominal pains, lightheadedness, black stool, or blood in the stool or vomitus. FOLLOW-UP CARE: If you have been referred to a physician for follow-up care, call the physician s office for an appointment as you were instructed or within the next two days. If you experience worsening or a significant change in your symptoms, notify the physician immediately or return to the Emergency Department at any time for re-evaluation. ABDOMINAL PAIN: There are many causes of abdominal pain. Pain can mean a serious problem requiring surgery (such as appendicitis). It can also be an innocent problem that goes away on its own (such as a viral infection). Often, time must pass to determine the cause of pain. The physician does not feel that hospitalization is necessary, at present. Things may change within the next 24 hours. Call the doctor or come back for re- examination if any problems occur, such as: (1) Pain that becomes more severe, steady, or becomes concentrated in one specific area. Also, pain that is more severe with movement or coughing. (2) Vomiting that persists or becomes more frequent. (3) Blood in the vomitus, urine, or bowel movements. Blood in the stool may have a tarry or black appearance. (4) Shaking chills or fever greater than 100 degrees F. (5) The abdomen becomes more distended or swollen. (6) Bowel movements cease. (7) Failure to improve as expected. NORMAL EXAM AND WORKUP: At this time, your examination and workup show no significant abnormality. No significant abnormal physical findings are noted. All laboratory, EKG, and imaging (x-ray, CT scans, ultrasound) studies that were ordered show no significant abnormality. Although your examination and all studies that were ordered showed no significant abnormal finding, there are no examinations and no studies that are 100% accurate. There is always the possibility that some abnormality could exist and not be detected with physical examination or within the limits and capabilities of laboratory and other studies. You should return or follow up as you were instructed on your visit today for further evaluation if your symptoms do not resolve. CONSTIPATION: Constipation is a common problem. It is especially likely as you get older. Constipation is a common cause of abdominal pain, but sometimes causes no symptoms at all. Causes of constipation include certain medications, dehydration, diets, inactivity, and low-fiber intake. Rarely, it can be a symptom of underlying disease. The physician has evaluated you for this. Avoid constipation by eating a diet high in fiber, fruits, and vegetables. Drink plenty of liquids. Get regular exercise. If possible, avoid constipating medicines like narcotic pain medication. Some vitamin tablets can cause constipation. Stool softeners may be needed for difficult cases. An excellent stool softener is Konsyl which is available at [employer], and [employer] drug store. Just add a teaspoon to a glass of pineapple or orange juice daily or twice a day if needed. Laxatives are useful for occasional constipation. You should use them only when necessary. Too-frequent use can make your bowels dependent on them. Some over the counter laxatives available without prescription are: Milk of Magnesia, 1-2 tablespoons twice a day Dulcolax, 5 mg pill or 10 mg suppository. Citrate of Magnesia, 4-5 ounces a day for a day or two For acute constipation, Fleet's Enemas and Dulcolax suppositories are helpful. Chronic, technician terminal and repeater use of laxatives or enemas is not a good idea. Your bowel may become dependant on them. You do not need to have a bowel movement every day. Many people do fine with a bowel movement every three or four days. You should call your doctor or return for re-evaluation if you pass blood in the stool, or if you develop fever or increasing abdominal pain. BULK LAXATIVES: Bulk laxatives make the stool softer and bulkier. They're useful for preventing constipation. You can choose between psyllium, methylcellulose, and polycarbophil. They are available without a prescription. Psyllium brand names include Konsyl, Metamucil, Perdiem, Effer-Syllium and Hydrocil. It's available as powder, flavored drink powder, or chewable. The usual dose of psyllium powder is one heaping teaspoon in water each morning, increasing to twice a day if needed. Bannock juice can disguise the slightly grainy texture. Methylcellulose is marketed as Citrucel and other brands. The average dose is two grams in a cup of water one to three times a day. Polycarbophil is marketed as Fiber-Con. Take two tablets with a cup of water one to three times a day. LAXATIVE: A laxative agent has been prescribed for your condition. This should result in passage of stool within 12 hours. Some mild intestinal cramping is common as the hard stool begins to move. You may have loose or runny stools for a short time. Contact your doctor if there is severe cramping, vomiting, or passage of blood. Return for further care if this medicine fails to improve your condition. FOLLOW-UP CARE: If you have been referred to a physician for follow-up care, call the physician s office for an appointment as you were instructed or within the next two days. If you experience worsening or a significant change in your symptoms, notify the physician immediately or return to the Emergency Department at any time for re-evaluation. Referrals: PRESTON PAYTON MD [Primary Care Provider] - Follow up as needed
[2016-08-27] MEDS ORDERED: NA PHOS,M-B/NA PHOS,DI-BA (ADULT) 133 ML ENEMA PR ONE (21:23)
== END 2016-08-27 22:09 | disposition home or self-care (01) ==
LOC: ER 17:00
DX: K59.00 Constipation, unspecified (principal); R11.2 Nausea with vomiting, unspecified; Z98.890 Other specified postprocedural states; Z91.040 Latex allergy status; Z88.0 Allergy status to penicillin; Z88.1 Allergy status to other antibiotic agents
CPT/HCPCS: 99284; 96374; 96375; 36415; 83690; 85025; 80053; 81001; 74022; J1200; J1170

== ENCOUNTER → 2017-05-12 | Outpatient (CLI) | payer MEDICAID ==
[2017-05-12 18:44] LABS: BACTERIA (WET MOUNT) 4+ BACTERIA SEEN; EPITHELIALS (WET MOUNT) 3+ EPITHELIALS SEEN; T.VAGINALIS (WET MOUNT) NO TRICHOMONAS SEEN; WBCS (WET MOUNT) FEW WBCS SEEN; YEAST (WET MOUNT) NO YEAST SEEN
== END ==
LOC: LAB 18:38
PROVIDERS: ATTEND Nurse Practitioner Acute Care
DX: L29.8 Other pruritus (principal)
CPT/HCPCS: 87210

== ENCOUNTER 2017-06-05 18:46 | Emergency (ER) | payer OTHER, MEDICAID ==
[2017-06-05] MEDS ORDERED: IBUPROFEN 800 MG TABLET PO ONE (19:09)
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
[2017-06-05 20:57] VITALS: BP 124/75
== END 2017-06-05 20:20 | disposition home or self-care (01) ==
LOC: ER 18:46
DX: M54.2 Cervicalgia (principal); M79.601 Pain in right arm; V49.40XA Driver injured in collision with unspecified motor vehicles in traffic accident, initial encounter; Z91.040 Latex allergy status; Z88.0 Allergy status to penicillin; Z88.1 Allergy status to other antibiotic agents
CPT/HCPCS: 99283; 72050; 72070; L0120

== ENCOUNTER → 2017-07-08 | Outpatient (CLI) | payer OTHER, MEDICAID ==
--- NOTE | 2017-07-08 19:20 | RADIOLOGY REPORT (SQ) ---
EXAM DESCRIPTION: CT HEAD WITHOUT COMPLETED DATE/TIME: 07/08/2017 7:12 pm REASON FOR STUDY: INCREASED FREQUENCY OF HEADACHES COMPARISON: MR dated 01/02/2016. TECHNIQUE: Axial images acquired through the brain without intravenous contrast. Images reviewed wi th bone, brain and subdural windows. Additional sagittal and coronal reconstructions were generated. Images stored on PACS. All CT scanners at this facility use dose modulation, iterative reconstruction, and/or weight based d osing when appropriate to reduce radiation dose to as low as reasonably achievable (ALARA). [facility]: Dose Right [facility]: CareDose [facility]: Dose Right [facility]: Teradose 4D [facility]: [employer]rick RADIATION DOSE: CT Rad equipment meets quality standard of care and radiation dose reduction techniq ues were employed. CTDIvol: 53.2 mGy. DLP: 1044 mGy-cm. mGy. LIMITATIONS: None. FINDINGS: VENTRICLES: Normal size and contour. CEREBRUM: No masses. No hemorrhage. No midline shift. No evidence for acute infarction. Normal gra y/white matter differentiation. No areas of low density in the white matter. CEREBELLUM: No masses. No hemorrhage. No alteration of density. No evidence for acute infarction. EXTRAAXIAL SPACES: No fluid collections. No masses. ORBITS AND GLOBE: No intra- or extraconal masses. Normal contour of globe without masses. CALVARIUM: No fracture. PARANASAL SINUSES: No fluid or mucosal thickening. SOFT TISSUES: No mass or hematoma. OTHER: No other significant finding. IMPRESSION: NORMAL BRAIN CT WITHOUT CONTRAST. EVIDENCE OF ACUTE STROKE: NO. COMMENT: Quality ID # [id number]: Final reports with documentation of one or more dose reduction techniques (e.g., Automated exposure control, adjustment of the mA and/or kV according to patient size, use of iterative reconstruction technique) TECHNICAL DOCUMENTATION: JOB ID: [id number] [employer]- All Rights Reserved Reading location - IP/workstation name: [email or web address]
== END ==
LOC: RAD 18:50
PROVIDERS: ATTEND Nurse Practitioner Adult Health
DX: R51 Headache (principal)
CPT/HCPCS: 70450

== ENCOUNTER 2017-10-04 22:27 | Emergency (ER) | payer MEDICAID ==
[2017-10-04] MEDS ORDERED: ACETAMINOPHEN 325 MG TABLET PO ONE (23:47)
--- NOTE | 2017-10-04 23:47 | ER Document Report ---
ED Medical Screen (RME) - General Chief Complaint: Cough Stated Complaint: HEADACHE,COUGH,DIZZY,ABDOMINAL PAIN Time Seen by Provider: 10/04/17 23:42 Mode of Arrival: Ambulatory Information source: Patient Notes: pt reports dry cough for 3 weeks. Also c/o RAMIREZ, lightheaded, abdominal pain, calf pain.. Was at physical therapy on Friday for ankle pain. She reports she has had on/off ankle pain for a year. Today her left leg is swollen, hurts constantly. Is worried she may have a blood clot. Denies pmh of DVT, PE. No recent trip, denies trauma. Has not taken any pain medication. RAMIREZ started at 1600 today. Denies f/v, reports diarrhea this am. TRAVEL OUTSIDE OF THE [place] IN LAST 30 DAYS: No - Related Data Allergies/Adverse Reactions: latex [Latex] Allergy (Severe, Verified 06/05/17 18:49) contact dermatitis Penicillins Allergy (Severe, Verified 06/05/17 18:49) Edema erythromycin base Allergy (Verified 06/05/17 18:49) levofloxacin [From Levaquin] Allergy (Verified 06/05/17 18:49) metronidazole [From Flagyl] Allergy (Verified 06/05/17 18:49) Past Medical History - Past Medical History Cardiac Medical History: Denies: Hx Coronary Artery Disease, Hx Heart Attack, Hx Hypertension Pulmonary Medical History: Denies: Hx Asthma, Hx Bronchitis, Hx COPD, Hx Pneumonia Neurological Medical History: Denies: Hx Cerebrovascular Accident, Hx Seizures Endocrine Medical History: Denies: Hx Diabetes Mellitus Type 1, Hx Diabetes Mellitus Type 2 Renal/ Medical History: Denies: Hx Peritoneal Dialysis GI Medical History: Reports: Hx Gastroesophageal Reflux Disease Musculoskeltal Medical History: Denies Hx Arthritis Past Surgical History: Reports: Hx Gynecologic Surgery - Lap x 2. Denies: Hx Hysterectomy - Immunizations Hx Diphtheria, Pertussis, Tetanus Vaccination: Yes Physical Exam - Vital signs Vitals: Temp Pulse Resp BP Pulse Ox 99.0 F 84 18 119/85 100 10/04/17 22:40 10/04/17 22:40 10/04/17 22:40 10/04/17 22:40 10/04/17 22:40 Course - Vital Signs Vital signs: Temp Pulse Resp BP Pulse Ox 99.0 F 84 18 119/85 100 10/04/17 22:40 10/04/17 22:40 10/04/17 22:40 10/04/17 22:40 10/04/17 22:40 Doctor's Discharge - Discharge Referrals: PRESTON PAYTON MD [Primary Care Provider] - Follow up as needed
--- NOTE | 2017-10-05 00:36 | RADIOLOGY REPORT (SQ) ---
EXAM DESCRIPTION: XR CHEST 2 VIEWS COMPLETED DATE/TME: 10/04/2017 23:47 CLINICAL HISTORY: cough COMPARISON: 08/27/2016 FINDINGS: Single frontal view of the chest. The cardiomediastinal silhouette has normal size and contour. No consolidation, pneumothorax, or pleural effusion. No displaced rib fractures identified. Upper abdominal soft tissues are unremarkable. IMPRESSION: 1. No acute pulmonary process identified.
[2017-10-05] MEDS ORDERED: BENZONATATE 100 MG CAPSULE PO ONE (03:06)
[2017-10-05] MEDS ORDERED: BUTALB/ACETAMINOPHEN/CAFFEINE 1 TAB EACH PO ONE (03:07)
--- NOTE | 2017-10-05 03:14 | ER Document Report ---
ED General - General Chief Complaint: Cough Stated Complaint: HEADACHE,COUGH,DIZZY,ABDOMINAL PAIN Time Seen by Provider: 10/04/17 23:42 Mode of Arrival: Ambulatory Information source: Patient Notes: Patient is a 36-year-old female who presents with multiple complaints. Patient complaining of headache and productive cough that has been intermittent for the last 3 weeks. Patient also complains of left leg pain. Patient reports this is due to an injury to her ankle. Patient reports that she has not been ambulating properly since her injury. TRAVEL OUTSIDE OF THE [place] IN LAST 30 DAYS: No - Related Data Allergies/Adverse Reactions: latex [Latex] Allergy (Severe, Verified 06/05/17 18:49) contact dermatitis Penicillins Allergy (Severe, Verified 06/05/17 18:49) Edema erythromycin base Allergy (Verified 06/05/17 18:49) levofloxacin [From Levaquin] Allergy (Verified 06/05/17 18:49) metronidazole [From Flagyl] Allergy (Verified 06/05/17 18:49) Past Medical History - General Information source: Patient - Social History Smoking Status: Never Smoker Chew tobacco use (# tins/day): No Frequency of alcohol use: None Drug Abuse: None Lives with: Spouse/Significant other Family History: Reviewed & Not Pertinent Patient has suicidal ideation: No Patient has homicidal ideation: No - Past Medical History Cardiac Medical History: Denies: Hx Coronary Artery Disease, Hx Heart Attack, Hx Hypertension Pulmonary Medical History: Denies: Hx Asthma, Hx Bronchitis, Hx COPD, Hx Pneumonia Neurological Medical History: Denies: Hx Cerebrovascular Accident, Hx Seizures Endocrine Medical History: Denies: Hx Diabetes Mellitus Type 1, Hx Diabetes Mellitus Type 2 Renal/ Medical History: Denies: Hx Peritoneal Dialysis GI Medical History: Reports: Hx Gastroesophageal Reflux Disease Musculoskeltal Medical History: Denies Hx Arthritis Past Surgical History: Reports: Hx Gynecologic Surgery - Lap x 2. Denies: Hx Hysterectomy - Immunizations Hx Diphtheria, Pertussis, Tetanus Vaccination: Yes Review of Systems - Review of Systems Constitutional: Other - Take EENT: No symptoms reported Cardiovascular: No symptoms reported Respiratory: Cough Gastrointestinal: No symptoms reported Genitourinary: No symptoms reported Female Genitourinary: No symptoms reported Musculoskeletal: See HPI Skin: No symptoms reported Hematologic/Lymphatic: No symptoms reported Neurological/Psychological: No symptoms reported Physical Exam - Vital signs Vitals: Temp Pulse Resp BP Pulse Ox 99.0 F 84 18 119/85 100 10/04/17 22:40 10/04/17 22:40 10/04/17 22:40 10/04/17 22:40 10/04/17 22:40 - Notes Notes: PHYSICAL EXAMINATION: GENERAL: Well-appearing, well-nourished and in no acute distress. HEAD: Atraumatic, normocephalic. EYES: Pupils equal round and reactive to light, extraocular movements intact, conjunctiva are normal. ENT: Nares patent, oropharynx clear without exudates. Moist mucous membranes. NECK: Normal range of motion, supple without lymphadenopathy LUNGS: Breath sounds clear to auscultation bilaterally and equal. No wheezes rales or rhonchi. Cough noted during deep auscultation. HEART: Regular rate and rhythm without murmurs ABDOMEN: Soft, nontender, nondistended abdomen. No guarding, no rebound. No masses appreciated. Female : deferred Musculoskeletal: Normal range of motion, no pitting or edema. No cyanosis. No swelling noted to either leg. NEUROLOGICAL: Cranial nerves grossly intact. Normal speech, normal gait. Normal sensory, motor exams PSYCH: Normal mood, normal affect. SKIN: Warm, Dry, normal turgor, no rashes or lesions noted. Course - Re-evaluation Re-evalutation: 36-year-old female with complaints of headache and cough. Patient reports that at the time of my assessment, she still has a mild cough and a mild headache. Patient reports that since she has been laying down, she does not have any leg pain at this time. There does not appear to be any swelling to the left leg, patient does report a history of a injury to her left ankle which has caused her gait to be off. Patient reports that she has been having pain due to this. Patient does report upper respiratory symptoms of intermittent productive cough with headache. Patient reports that she has been here all night and is ready to go. Triage provider ordered a chest x-ray which is normal and has no acute findings such as pneumonia. Patient is afebrile patient's lungs are clear bilaterally. Patient will be given dose of Tessalon Perles as well as Fioricet for her headache and patient will be discharged home in stable condition. - Vital Signs Vital signs: Temp Pulse Resp BP Pulse Ox 98.2 F 79 20 117/64 100 10/05/17 04:14 10/05/17 04:14 10/05/17 04:14 10/05/17 04:14 10/05/17 04:14 Discharge - Discharge Clinical Impression: Cough, Headache Condition: Stable Disposition: HOME, SELF-CARE Additional Instructions: Cough Suppressant/Expectorant Medication You are to use a cough medication as needed for relief of symptoms. This medicine is a combination of an expectorant (to make the mucous thinner and more easily "coughed up") and a cough suppressant (to reduce the frequency of coughing). The cough-suppressant medicine is related to narcotics. You may experience mild nausea and sleepiness. Some patients who are very sensitive to narcotics may have stomach pain from this medicine. Taking the medicine with food reduces these side effects. Do not drive or work with machinery until you know how this medicine affects you. The expectorant should have no side effects. Iodine-containing expectorants (such as organidin) should not be taken by persons with active thyroid disease unless approved by your doctor. Call the doctor if you develop shortness of breath, hives, rash, itching, lightheadedness, or severe nausea and vomiting. Headache The physician does not feel that the headache you are experiencing has a serious underlying cause. Most headaches are due to emotional stress, with resultant muscle tension (tension headache). Occasionally, headaches are secondary to changes in the blood vessels of the scalp (vascular headache and migraine headache). Sometimes, a headache is the first symptom of another developing illness, such as a viral infection. You have no evidence of stroke, bleeding, meningitis, or other serious cause of your headache. The treatment of headaches varies with the severity and cause of the pain. Not all headaches need pain shots. In fact, there is evidence that using narcotics for headaches may make them worse in the long run. The physician will determine the therapy that's in your best interest. If you develop a fever, if the headache is different from any you've previously experienced, or if the headache progressively worsens, then call your physician at once or go to the emergency room. Take medications as prescribed. Please see your primary care provider next week for a follow-up. Please return to the emergency department if you develop worsening symptoms. Prescriptions: Butalb/Acetaminophen/Caffeine [Fioricet (50-325-40 mg) Tablet] 1 tab PO Q4HP PRN #30 tab PRN Reason: Benzonatate [Tessalon Perles 100 mg Capsule] 100 mg PO Q8HP PRN #40 capsule PRN Reason: Referrals: PRESTON PAYTON MD [Primary Care Provider] - Follow up as needed
[2017-10-05 04:41] VITALS: BP 117/64
== END 2017-10-05 04:16 | disposition home or self-care (01) ==
LOC: ER 22:27
DX: R05 Cough (principal); R51 Headache; M79.605 Pain in left leg; R26.9 Unspecified abnormalities of gait and mobility; Z91.040 Latex allergy status; Z88.0 Allergy status to penicillin; Z88.1 Allergy status to other antibiotic agents
CPT/HCPCS: 99283; 71046; J3490 ×2

== ENCOUNTER 2017-11-14 11:09 | Day surgery (SDC) | payer MEDICAID ==
[2017-11-12 11:51] LABS: HEMATOCRIT 37.8 % (36.0-47.0); MEAN CORPUSCULAR HEMOGLOBIN 23.3 pg (27.0-33.4); MEAN CORPUSCULAR HGB CONC 31.8 g/dL (32.0-36.0); MEAN CORPUSCULAR VOLUME 73 fl (80-97); PLATELET COUNT 400 10^3/uL (150-450); RED BLOOD COUNT 5.15 10^6/uL (3.72-5.28); RED CELL DISTRIBUTION WIDTH 16.6 % (11.5-14.0); WHITE BLOOD COUNT 6.9 10^3/uL (4.0-10.5)
[2017-11-12 12:00] LABS: APPEARANCE,URINE SLIGHTLY-CLOUDY; BILIRUBIN,URINE NEGATIVE (NEGATIVE); COLOR,URINE YELLOW; GLUCOSE, URINE NEGATIVE (NEGATIVE); KETONES,URINE TRACE mg/dL (NEGATIVE); LEUKOCYTE ESTERASE,URINE NEGATIVE (NEGATIVE); NITRITE,URINE NEGATIVE (NEGATIVE); PROTEIN,URINE NEGATIVE (NEGATIVE); URINE SPECIFIC GRAVITY 1.029; UROBILINOGEN,URINE NEGATIVE mg/dL (<2.0)
[~2017-11-14 11:09] MED LIST changes: -CLINDAMYCIN 900 MG/D5W RTU 50 ML IV PRN; -GENTAMICIN SULFATE 120 MG in DEXTROSE 5%-WATER 100 ML IV PRN; -KETOROLAC TROMETHAMINE 60 MG/2 ML SDV ONE; -LIDOCAINE 2% INJ-PF (20 MG/ML) 10 ML AMPUL ONE; -ONDANSETRON HCL INJ/PF 4 MG/2 ML SDV ONE; +SCOPOLAMINE HYDROBROMIDE 1.5 MG PATCH.TD72 TD PRN
[2017-11-14] MEDS ORDERED: FENTANYL CITRATE INJ/PF 100 MCG/2 ML AMPUL ONE (11:55)
[2017-11-14] MEDS ORDERED: MIDAZOLAM 2 MG/2 ML INJ ONE (11:55)
[2017-11-14] MEDS ORDERED: LIDOCAINE 2% INJ-PF (20 MG/ML) 10 ML AMPUL ONE (11:55)
[2017-11-14] MEDS ORDERED: PROPOFOL INJ 200 MG/20 ML VIAL IV ONE (11:55)
[2017-11-14] MEDS ORDERED: ONDANSETRON HCL INJ/PF 4 MG/2 ML SDV ONE (12:02)
[2017-11-14] MEDS ORDERED: DEXAMETHASONE SOD PHOSPHATE INJ 4 MG/1 ML VIAL ONE (12:02)
[2017-11-14] MEDS ORDERED: DIPHENHYDRAMINE HCL 50 MG/ML VIAL IV PRN (12:28)
[2017-11-14] MEDS ORDERED: FENTANYL CITRATE INJ/PF 100 MCG/2 ML AMPUL IV PRN ×3 (12:28)
[2017-11-14] MEDS ORDERED: PROMETHAZINE HCL INJ 25 MG/1 ML VIAL IV PRN ×2 (12:28)
[2017-11-14] MEDS ORDERED: OXYCODONE-ACETAMINOPHEN 5-325 MG TABLET PO PRN ×3 (12:28→13:29)
[2017-11-14] MEDS ORDERED: MEPERIDINE HCL/PF INJ 25 MG/1 ML DISP.SYRIN IV PRN (12:28)
[2017-11-14] MEDS ORDERED: ONDANSETRON HCL INJ/PF 4 MG/2 ML SDV IV PRN (12:28)
[2017-11-14] MEDS: FENTANYL CITRATE INJ/PF 100 MCG/2 ML AMPUL ONE ×2 (12:46→12:51)
[2017-11-14] MEDS ORDERED: PROMETHAZINE HCL INJ 25 MG/1 ML VIAL ONE (12:50)
[2017-11-14] MEDS ORDERED: LORAZEPAM INJ 2 MG/1 ML VIAL ONE (13:14)
[2017-11-14] MEDS ORDERED: ONDANSETRON HCL 8 MG TABLET PO SCH (14:00)
[2017-11-14] MEDS ORDERED: IBUPROFEN 800 MG TABLET PO SCH (14:00)
--- NOTE | 2017-11-14 14:40 | OPERATIVE REPORT E ---
Operative Report NAME: BEBETO MAGANA : 1980 AGE: 37Y DATE OF SURGERY: 11/14/2017 ROOM: PREOPERATIVE DIAGNOSIS: VULVAR LESION. POSTOPERATIVE DIAGNOSIS: VULVAR LESION. OPERATION: Excision of vulvar lesion. ESTIMATED BLOOD LOSS: Negligible. SURGEON: Raeann LUGO M.D. TISSUE REMOVED OR ALTERED: Vulvar cyst. PROCEDURE: The patient was placed in a dorsal lithotomy position, prepped and draped in sterile fashion. Between the labia minora and the labia majora on the left, there was a small 4 to 5 mm cyst. The overlying skin was excised. Underlying cystic structure was then removed with sharp dissection. Defect closed with running suture of 4-0 Vicryl. The procedure was terminated and she was taken to recovery in good condition. DICTATING PHYSICIAN: Raeann LUGO M.D. [id number] PHY#: [id number] ID: [id number] JOB#: [id number] ACCT: [id number] cc:Raeann LUGO M.D. >
[2017-11-14 15:12] VITALS: BP 124/76
== END 2017-11-14 14:35 | disposition home or self-care (01) ==
LOC: OROUT 11:09
PROVIDERS: ATTEND Obstetrics & Gynecology Gynecology
DX: D28.0 Benign neoplasm of vulva (principal); N94.819 Vulvodynia, unspecified; R01.1 Cardiac murmur, unspecified; K21.9 Gastro-esophageal reflux disease without esophagitis; D64.9 Anemia, unspecified; E55.9 Vitamin D deficiency, unspecified; Z79.1 Long term (current) use of non-steroidal anti-inflammatories (NSAID); Z79.899 Other long term (current) drug therapy; Z88.0 Allergy status to penicillin; Z88.1 Allergy status to other antibiotic agents; Z91.040 Latex allergy status
CPT/HCPCS: 36415; 85027; 81025; 81001; 88304 ×2; 11420; J2250; J1100; J3010; J3490 ×2; J2060; J2550; J2405; J2704; 940

== ENCOUNTER → 2018-04-14 | Outpatient (CLI) | payer MEDICAID, OTHER ==
--- NOTE | 2018-04-14 16:32 | RADIOLOGY REPORT (SQ) ---
EXAM DESCRIPTION: CHEST PA/LATERAL COMPLETED DATE/TIME: 04/14/2018 4:11 pm REASON FOR STUDY: COUGH COMPARISON: 10/05/2017. EXAM PARAMETERS: NUMBER OF VIEWS: two views TECHNIQUE: Digital Frontal and Lateral radiographic views of the chest acquired. RADIATION DOSE: NA LIMITATIONS: none FINDINGS: LUNGS AND PLEURA: No opacities, masses or pneumothorax. No pleural effusion. MEDIASTINUM AND HILAR STRUCTURES: No masses or contour abnormalities. HEART AND VASCULAR STRUCTURES: Heart normal size. No evidence for failure. BONES: No acute findings. HARDWARE: None in the chest. OTHER: No other significant finding. IMPRESSION: NO SIGNIFICANT RADIOGRAPHIC FINDING IN THE CHEST. TECHNICAL DOCUMENTATION: JOB ID: [id number] [employer]- All Rights Reserved Reading location - IP/workstation name: [email or web address]
== END ==
LOC: OD 15:37
PROVIDERS: ATTEND Internal Medicine
DX: R05 Cough (principal)
CPT/HCPCS: 71046

== ENCOUNTER 2018-04-17 18:59 | Emergency (ER) | payer MEDICAID ==
[2018-04-17] MEDS ORDERED: DEXAMETHASONE SOD PHOS INJ 10 MG/1 ML VIAL IM ONE (22:04)
[2018-04-17] MEDS ORDERED: AZITHROMYCIN 250 MG TABLET PO ONE (22:05)
[2018-04-17 22:35] LABS: A TYPE INFLUENZA AG NEGATIVE (NEGATIVE); B INFLUENZA AG NEGATIVE (NEGATIVE)
--- NOTE | 2018-04-17 23:17 | ER Document Report ---
HPI - HPI Time Seen by Provider: 04/17/18 21:27 Pain Level: 3 Context: Patient is a 37-year-old female that comes to the emergency department for chief complaint of cough and congestion that started 1 month ago, she has developed worsening sinus congestion, over the past couple days she has developed a severe left ear pain. She has occasionally productive cough. She also has swollen lymph nodes along the chin and neck which are painful. She reports pain with swallowing. She denies difficulty breathing. Chest pain is only with cough. She denies fevers. Occasional chills reported. She denies smoking. Denies history of asthma. LMP within the past month. - REPRODUCTIVE Reproductive: DENIES: : Past Medical History - General Information source: Patient - Social History Smoking Status: Never Smoker Frequency of alcohol use: None Drug Abuse: None Lives with: Family Family History: Reviewed & Not Pertinent - Past Medical History Cardiac Medical History: Denies: Hx Coronary Artery Disease, Hx Heart Attack, Hx Hypertension Pulmonary Medical History: Denies: Hx Asthma, Hx Bronchitis, Hx COPD, Hx Pneumonia Neurological Medical History: Denies: Hx Cerebrovascular Accident, Hx Seizures Endocrine Medical History: Denies: Hx Diabetes Mellitus Type 1, Hx Diabetes Mellitus Type 2 Renal/ Medical History: Denies: Hx Peritoneal Dialysis GI Medical History: Reports: Hx Gastroesophageal Reflux Disease Musculoskeletal Medical History: Denies Hx Arthritis Past Surgical History: Reports: Hx Gynecologic Surgery - Lap x 2. Denies: Hx Hysterectomy - Immunizations Hx Diphtheria, Pertussis, Tetanus Vaccination: Yes Vertical Provider Document - CONSTITUTIONAL General Appearance: WD/WN, No Apparent Distress - INFECTION CONTROL TRAVEL OUTSIDE OF THE [place] IN LAST 30 DAYS: No - HEENT HEENT: Atraumatic, Normocephalic. negative: Normal ENT Exam - Congested sinuses, congested nasal passages, pain with palpation over the sinuses which is very mild. Minimal erythema of the posterior pharynx without uvular edema, swelling, evidence of abscess. Left tympanic membrane is bulging with erythema, loss of landmarks. Right TM unremarkable. Unremarkable ENT exam otherwise. - NECK Neck: Lymphadenopathy-Left, Lymphadenopathy-Right - RESPIRATORY Respiratory: Breath Sounds Normal, No Respiratory Distress. negative: Rhonchi, Wheezing - CARDIOVASCULAR Cardiovascular: Regular Rate, Regular Rhythm - GI/ABDOMEN Gastrointestinal: Abdomen Soft, Abdomen Non-Tender - BACK Back: Normal Inspection - MUSCULOSKELETAL/EXTREMETIES Musculoskeletal/Extremeties: MAEW, FROM, Non-Tender - NEURO Level of Consciousness: Awake, Alert, Appropriate - DERM Integumentary: Warm, Dry, No Rash Course - Re-evaluation Re-evalutation: Patient just had a chest x-ray, I was able to view this in the system. This was negative. Influenza is negative. Examination consistent with viral illness and secondary sinus congestion along with developed left otitis media. Patient is allergic to penicillin therefore will use azithromycin. She states she is aller gic to erythromycin but states she has taken azithromycin without any difficulty in the past. Discussed primary care follow-up, return precautions. Given dexamethasone for lymphadenopathy and cough. Patient states understanding and agreement. - Vital Signs Vital signs: Temp Pulse Resp BP Pulse Ox 98.5 F 109 H 18 125/76 100 04/17/18 22:23 04/17/18 19:17 04/17/18 19:17 04/17/18 19:17 04/17/18 19:17 Discharge - Discharge Clinical Impression: Cough, Sinus congestion Upper respiratory infection Qualifiers: URI type: unspecified URI Qualified Code(s): J06.9 - Acute upper respiratory in fection, unspecified Otitis media Qualifiers: Otitis media type: suppurative Chronicity: acute Laterality: left Recurrence: non-recurrent Spontaneous tympanic membrane rupture: without spontaneous rupture Qualified Code(s): H66.002 - Acute suppurative otitis media without spontaneous rupture of ear drum, left ear Condition: Stable Disposition: HOME, SELF-CARE Additional Instructions: Your recent chest x-ray did not show any concerning findings. Your influenza test is negative. Your evaluation is most consistent with initial viral illness, upper respiratory infection, you have also developed ear infection on the left side and swollen lymph nodes. Take antibiotics as prescribed. You have been treated with dexamethasone. I recommend the Flonase, Sudafed, and antihistamine prescribed as well. Drink plenty of fluids and rest. Follow-up with primary care. Return if you worsen including difficulty breathing, spiking fevers, vomiting, or any other concerning or worsening symptoms. Prescriptions: Azithromycin [Zithromax 250 mg Tablet] 250 mg PO ASDIR PRN #4 tablet PRN Reason: Fexofenadine HCl [Samantha Allergy] 180 mg PO DAILY #30 tablet Fluticasone Propionate [Flonase Nasal Bly 50 Mcg/Bly 16 gm] 2 sprays NASL Q12 #1 inhaler Pseudoephedrine HCl [Sudafed 12 Hour] 120 mg PO Q12 PRN #14 tablet.er PRN Reason: Forms: Return to Work Referrals: PRESTON PAYTON MD [Primary Care Provider] - Follow up in 1 week
[2018-04-17 23:55] VITALS: BP 121/71
== END 2018-04-17 22:23 | disposition home or self-care (01) ==
LOC: ER 18:59
DX: H66.002 Acute suppurative otitis media without spontaneous rupture of ear drum, left ear (principal); J06.9 Acute upper respiratory infection, unspecified; R05 Cough; R09.81 Nasal congestion; H92.02 Otalgia, left ear; R07.9 Chest pain, unspecified; R68.83 Chills (without fever); J34.89 Other specified disorders of nose and nasal sinuses; R59.0 Localized enlarged lymph nodes; Z88.0 Allergy status to penicillin
CPT/HCPCS: 99283; 96372; 87804; Q0144; J1100

== ENCOUNTER → 2018-04-21 | Outpatient (CLI) | payer MEDICAID ==
--- NOTE | 2018-04-21 18:10 | RADIOLOGY REPORT (SQ) ---
EXAM DESCRIPTION: KNEE RIGHT 4 VIEWS COMPLETED DATE/TIME: 04/21/2018 5:56 pm REASON FOR STUDY: M25.561 SHAW JESSICA RIGHT KNEE M25.561 PAIN IN RIGHT KNEE COMPARISON: 08/20/2015. NUMBER OF VIEWS: Four views. TECHNIQUE: AP, lateral, and both oblique radiographic images acquired of the right knee. LIMITATIONS: None. FINDINGS: MINERALIZATION: Normal. BONES: No acute fracture or dislocation. No worrisome bone lesions. No significant osteophytes. JOINT: No effusion. No chondrocalcinosis. OTHER: No other significant finding. IMPRESSION: NEGATIVE STUDY OF THE RIGHT KNEE. NO EXPLANATION FOR PAIN. TECHNICAL DOCUMENTATION: JOB ID: [id number] [employer]- All Rights Reserved Reading location - IP/workstation name: [email or web address]
--- NOTE | 2018-04-21 20:05 | RADIOLOGY REPORT (SQ) ---
MR LOWER EXTREMITY JOINT WITHOUT IV CONTRAST HISTORY: Knee pain. Infrapatellar pain. Pulling sensation. COMPARISON: Radiographs from earlier the same day. TECHNIQUE: Multiplanar, multisequence MR imaging of the right knee was performed without the administration of intravenous gadolinium. FINDINGS: The anterior and posterior cruciate ligaments are intact, as are the medial and lateral collateral ligament complexes and the insertion of the popliteus tendon. There is no meniscal tear. The capsular attachments are intact. The articular cartilage over the tibiofemoral and patellofemoral joints are maintained, without prominent fibrillation or fissuring. The extensor mechanism is maintained. The suprapatellar and infrapatellar fat pads are normal. There is no acute fracture or osteonecrosis. No knee joint effusion is appreciated. IMPRESSION: No internal derangement of the right knee.
== END ==
LOC: RAD 16:04
PROVIDERS: ATTEND Internal Medicine
DX: M25.561 Pain in right knee (principal)

== ENCOUNTER 2018-07-08 16:10 | Emergency (ER) | payer MEDICAID ==
[2018-07-08] MEDS ORDERED: DIPHENHYDRAMINE HCL 50 MG/ML VIAL IV ONE (17:19)
[2018-07-08] MEDS ORDERED: METHYLPREDNISOLONE INJ 125 MG/2 ML SDV IV ONE (17:19)
[2018-07-08] MEDS ORDERED: FAMOTIDINE INJ/PF 20 MG/2 ML SDV IV ONE (17:19)
[2018-07-08] MEDS ORDERED: NORMAL SALINE 1000 ML 1,000 ML IV ONE (17:19)
--- NOTE | 2018-07-08 17:21 | ER Document Report ---
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 She did use an EpiPen prior to arrival. Patient has some erythema swelling and voice is hoarse. Will start IV fluids, steroids, H1 and H2 blockers. I have greeted and performed a rapid initial assessment of this patient. A comprehensive ED assessment and evaluation of the patient, analysis of test results and completion of the medical decision making process will be conducted by additional ED providers. TRAVEL OUTSIDE OF THE U[place] IN LAST 30 DAYS: No - Related Data Allergies/Adverse Reactions: latex [Latex] Allergy (Severe, Verified 06/05/17 18:49) contact dermatitis Penicillins Allergy (Severe, Verified 06/05/17 18:49) Edema erythromycin base Allergy (Verified 06/05/17 18:49) levofloxacin [From Levaquin] Allergy (Verified 06/05/17 18:49) metronidazole [From Flagyl] Allergy (Verified 06/05/17 18:49) ciprofloxacin [From Cipro] Adverse Reaction (Verified 11/12/17 10:19) Past Medical History - Past Medical History Cardiac Medical History: Denies: Hx Coronary Artery Disease, Hx Heart Attack, Hx Hypertension Pulmonary Medical History: Denies: Hx Asthma, Hx Bronchitis, Hx COPD, Hx Pneumonia Neurological Medical History: Denies: Hx Cerebrovascular Accident, Hx Seizures Endocrine Medical History: Denies: Hx Diabetes Mellitus Type 1, Hx Diabetes Mellitus Type 2 Renal/ Medical History: Denies: Hx Peritoneal Dialysis GI Medical History: Reports: Hx Gastroesophageal Reflux Disease Musculoskeltal Medical History: Denies Hx Arthritis Past Surgical History: Reports: Hx Gynecologic Surgery - Lap x 2. Denies: Hx Hysterectomy - Immunizations Hx Diphtheria, Pertussis, Tetanus Vaccination: Yes History of Influenza Vaccine for 01/2017 - 06/2017 Season: No Physical Exam - Vital signs Vitals: Temp Pulse Resp BP Pulse Ox 98.4 F 101 H 16 139/75 H 100 07/08/18 16:34 07/08/18 16:34 07/08/18 16:34 07/08/18 16:34 07/08/18 16:34 Course - Vital Signs Vital signs: Temp Pulse Resp BP Pulse Ox 98.4 F 101 H 16 139/75 H 100 07/08/18 16:34 07/08/18 16:34 07/08/18 16:34 07/08/18 16:34 07/08/18 16:34 Doctor's Discharge - Discharge Referrals: PRESTON PAYTON MD [Primary Care Provider] - Follow up as needed
[2018-07-08] MEDS ORDERED: MAGNESIUM SULFATE/D5W 1 GM/100 ML RTUPB IV ONE (17:47)
--- NOTE | 2018-07-08 17:50 | ER Document Report ---
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 The patient did take EpiPen and EMS was called and she was brought in by EMS. TRAVEL OUTSIDE OF THE [place] IN LAST 30 DAYS: No - HPI Onset: Just prior to arrival Onset/Duration: Sudden Quality of pain: No pain Severity: None Pain Level: Denies Associated symptoms: Shortness of breath. denies: Chest pain, Fever Exacerbated by: Denies Relieved by: Denies Similar symptoms previously: Yes Recently seen / treated by doctor: Yes - Related Data Allergies/Adverse Reactions: latex [Latex] Allergy (Severe, Verified 06/05/17 18:49) contact dermatitis Penicillins Allergy (Severe, Verified 06/05/17 18:49) Edema erythromycin base Allergy (Verified 06/05/17 18:49) levofloxacin [From Levaquin] Allergy (Verified 06/05/17 18:49) metronidazole [From Flagyl] Allergy (Verified 06/05/17 18:49) ciprofloxacin [From Cipro] Adverse Reaction (Verified 11/12/17 10:19) Past Medical History - General Information source: Patient - Social History Smoking Status: Never Smoker Cigarette use (# per day): No Chew tobacco use (# tins/day): No Frequency of alcohol use: None Drug Abuse: None Lives with: Family Family History: Reviewed & Not Pertinent Patient has suicidal ideation: No Patient has homicidal ideation: No - Past Medical History Cardiac Medical History: Denies: Hx Coronary Artery Disease, Hx Heart Attack, Hx Hypertension Pulmonary Medical History: Denies: Hx Asthma, Hx Bronchitis, Hx COPD, Hx Pneumonia Neurological Medical History: Denies: Hx Cerebrovascular Accident, Hx Seizures Endocrine Medical History: Denies: Hx Diabetes Mellitus Type 1, Hx Diabetes Mellitus Type 2 Renal/ Medical History: Denies: Hx Peritoneal Dialysis GI Medical History: Reports: Hx Gastroesophageal Reflux Disease Musculoskeletal Medical History: Denies Hx Arthritis Surgical Hx: Negative Past Surgical History: Reports: Hx Gynecologic Surgery - Lap x 2. Denies: Hx Hysterectomy - Immunizations Hx Diphtheria, Pertussis, Tetanus Vaccination: Yes Review of Systems - Review of Systems Constitutional: denies: Chills, Fever EENT: No symptoms reported Cardiovascular: See HPI Respiratory: See HPI Gastrointestinal: No symptoms reported Genitourinary: No symptoms reported Female Genitourinary: No symptoms reported Musculoskeletal: No symptoms reported Skin: No symptoms reported Hematologic/Lymphatic: No symptoms reported Neurological/Psychological: No symptoms reported Physical Exam - Vital signs Vitals: Temp Pulse Resp BP Pulse Ox 98.4 F 101 H 16 139/75 H 100 07/08/18 16:34 07/08/18 16:34 07/08/18 16:34 07/08/18 16:34 07/08/18 16:34 Notes: Physical exam: GENERAL: This is a 37-year-old female, alert and oriented x3, no acute distress. Her vital signs are currently stable. She is answering questions. HEAD: Atraumatic, normocephalic. EYES: Pupils equal round and reactive to light, extraocular movements intact, sclera anicteric, conjunctiva are normal. ENT: Nares patent, oropharynx clear without exudates. Her voice is hoarse. There is no stridor. There is no swelling of the uvula or in the posterior pharynx or in the floor the mouth. Moist mucous membranes. NECK: Normal range of motion, supple without obvious mass or JVD. LUNGS: Breath sounds clear to auscultation bilaterally and equal. No wheezes rales or rhonchi. HEART: Regular rate and rhythm without murmurs, rubs or gallops. ABDOMEN: Soft, normoactive bowel sounds. No tenderness to palpation. No guarding, no rebound. No masses appreciated. EXTREMITIES: Normal range of motion, no pitting or edema. No clubbing or cyanosis. NEUROLOGICAL: Cranial nerves II through XII grossly intact. Normal speech, moving all extremities. PSYCH: Normal mood, normal affect. SKIN: Warm, Dry, normal turgor, no rashes or lesions noted. Course - Re-evaluation Re-evalutation: 07/08/18 23:27 Patient was observed several hours. I examined her several times in that period of time. If anything her and symptoms improved. She did complain of a sore throat still and I gave her a GI cocktail which seemed to help. There continues to be no wheezing, stridor or respiratory distress. I will send her home on medicines. We spoke at great length about prednisone and she really wants to avoid it. I have renewed her EpiPen and will send her home on Benadryl and Pepcid as well. - Vital Signs Vital signs: Temp Pulse Resp BP Pulse Ox 98.4 F 101 H 13 131/72 H 98 07/08/18 16:34 07/08/18 16:34 07/08/18 22:01 07/08/18 22:01 07/08/18 22:01 Discharge - Discharge Clinical Impression: Acute allergic reaction Condition: Stable Disposition: HOME, SELF-CARE Instructions: Acute Allergic Reaction ([facility]) Additional Instructions: As we discussed, want you to rest for the next few days. Drink plenty of fluids, advance diet as tolerated. Take medicines as prescribed. Take epinephrine autoinjector for any shortness of breath or feelings like her airway is getting closed off work the ability to pass out. If you use the autoinjector, return to the ER at once. Followup with an experimental box tester for allergy testing: [facility]: Address: [address] [place] [id number] Prescriptions: Diphenhydramine HCl [Benadryl 25 mg Capsule] 25 mg PO Q4 PRN #20 capsule PRN Reason: Itching Epinephrine [Epipen 2-Wilder] 0.3 mg IM ONCE PRN #2 ml PRN Reason: Famotidine [Pepcid 20 mg Tablet] 20 mg PO BID #12 tablet Forms: Return to Work Referrals: PRESTON PAYTON MD [Primary Care Provider] - 07/10/18
[2018-07-08] MEDS ORDERED: METOCLOPRAMIDE HCL ORAL SOLN 10 MG/10 ML UDCUP PO ONE (22:01)
[2018-07-08] MEDS ORDERED: MAG HYDROX/AL HYDROX/SIMETH SUSP 30 ML UDCUP PO ONE (22:01)
[2018-07-08] MEDS ORDERED: LIDOCAINE 2% VISCOUS SOLN 20 ML UDCUP PO ONE (22:01)
[2018-07-08 23:21] VITALS: BP 128/71
== END 2018-07-08 23:35 | disposition home or self-care (01) ==
LOC: ER 16:10
DX: T78.49XA Other allergy, initial encounter (principal); R06.02 Shortness of breath; X58.XXXA Exposure to other specified factors, initial encounter; J02.9 Acute pharyngitis, unspecified; R49.0 Dysphonia; Z88.1 Allergy status to other antibiotic agents
CPT/HCPCS: 99285; 96375; 96365; J1200; J3490 ×3; J2930; J3475; J7030; S0028

== ENCOUNTER → 2018-09-10 | Outpatient (CLI) | payer MEDICAID ==
--- NOTE | 2018-09-10 18:47 | RADIOLOGY REPORT (SQ) ---
EXAM DESCRIPTION: CT SINUSES FOR ENT COMPLETED DATE/TIME: 09/10/2018 4:52 pm REASON FOR STUDY: J01.91 ACUTE RECURRENT SINUSITIS, UNSPECIFIED J01.91 ACUTE RECURRENT SINUSITIS, U NSPECIFIED COMPARISON: None. TECHNIQUE: Noncontrast scanning through the paranasal sinuses using bone algorithm. Reconstructed MPR images reviewed. All images stored on PACS. Images acquired for image guided surgery. All CT scanners at this facility use dose modulation, iterative reconstruction, and/or weight based d osing when appropriate to reduce radiation dose to as low as reasonably achievable (ALARA). [facility]: Dose Right [facility]: CareDose [facility]: Dose Right [facility]: Teradose 4D [facility]: Apprema RADIATION DOSE: mGy. FINDINGS: The paranasal sinuses are well developed. Mucosal thickening in all paranasal sinuses exc ept the left sphenoid sinus. Thinning of the ethmoids. Both nasofrontal recesses and the left infun dibulum are opacified. Swollen left inferior nasal turbinate. Nasal septum near midline. IMPRESSION: Chronic perez sinusitis. TECHNICAL DOCUMENTATION: JOB ID: [id number] Quality ID # [id number]: Final reports with documentation of one or more dose reduction techniques (e.g., Au tomated exposure control, adjustment of the mA and/or kV according to patient size, use of iterative reconstruction technique) 2010 [employer]- All Rights Reserved Reading location - IP/workstation name: [email or web address]
== END ==
LOC: RAD 16:05
PROVIDERS: ATTEND Otolaryngology
DX: J01.91 Acute recurrent sinusitis, unspecified (principal)
CPT/HCPCS: 70486

== ENCOUNTER → 2019-07-01 | Outpatient (CLI) | payer MEDICAID ==
--- NOTE | 2019-07-01 14:31 | RADIOLOGY REPORT (SQ) ---
EXAM DESCRIPTION: CHEST PA/LATERAL COMPLETED DATE/TIME: 07/01/2019 2:23 pm REASON FOR STUDY: COUGH COMPARISON: 04/14/2018 EXAM PARAMETERS: NUMBER OF VIEWS: two views TECHNIQUE: Digital Frontal and Lateral radiographic views of the chest acquired. RADIATION DOSE: NA LIMITATIONS: none FINDINGS: LUNGS AND PLEURA: No opacities, masses or pneumothorax. No pleural effusion. MEDIASTINUM AND HILAR STRUCTURES: No masses or contour abnormalities. HEART AND VASCULAR STRUCTURES: Heart normal size. No evidence for failure. BONES: No acute findings. HARDWARE: None in the chest. OTHER: No other significant finding. IMPRESSION: NO SIGNIFICANT RADIOGRAPHIC FINDING IN THE CHEST. TECHNICAL DOCUMENTATION: JOB ID: [id number] 2010 [employer]- All Rights Reserved Reading location - IP/workstation name: [email or web address]
== END ==
LOC: OD 14:01
PROVIDERS: ATTEND Internal Medicine
DX: R05 Cough (principal)
CPT/HCPCS: 71046

== ENCOUNTER → 2019-07-06 | Outpatient (CLI) | payer MEDICAID ==
--- NOTE | 2019-07-06 13:34 | RADIOLOGY REPORT (SQ) ---
EXAM DESCRIPTION: CHEST PA/LATERAL IMAGES COMPLETED DATE/TIME: 07/06/2019 1:10 pm REASON FOR STUDY: CHEST PAIN, UNSPECIFIED COMPARISON: 07/01/2019 EXAM PARAMETERS: NUMBER OF VIEWS: two views TECHNIQUE: Digital Frontal and Lateral radiographic views of the chest acquired. RADIATION DOSE: NA LIMITATIONS: none FINDINGS: LUNGS AND PLEURA: No opacities, masses or pneumothorax. No pleural effusion. MEDIASTINUM AND HILAR STRUCTURES: No masses or contour abnormalities. HEART AND VASCULAR STRUCTURES: Heart normal size. No evidence for failure. BONES: No acute findings. HARDWARE: None in the chest. OTHER: No other significant finding. IMPRESSION: NO SIGNIFICANT RADIOGRAPHIC FINDING IN THE CHEST. TECHNICAL DOCUMENTATION: JOB ID: [id number] 2010 [employer]- All Rights Reserved Reading location - IP/workstation name: [email or web address]
== END ==
LOC: OD 12:55
PROVIDERS: ATTEND Internal Medicine
DX: R07.9 Chest pain, unspecified (principal)
CPT/HCPCS: 71046

== ENCOUNTER → 2020-02-03 | Outpatient (CLI) | payer MEDICAID ==
--- NOTE | 2020-02-03 15:06 | RADIOLOGY REPORT (SQ) ---
EXAM DESCRIPTION: NM 3 PHASE BONE SCAN IMAGES COMPLETED DATE/TIME: 02/03/2020 2:26 pm REASON FOR STUDY: M25.572 PAIN IN LEFT ANKLE AND JOINTS OF LEFT FOOT M25.572 PAIN IN LEFT ANKLE AND JOINTS OF LEFT FOOT R22.40 LOCALIZED SWELLING, MASS AND LUMP, UNSPECIFIED LOWER COMPARISON: Plain films 05/04/2019 outside facility. RADIONUCLIDE AND DOSE: 20.8 millicuries Tc99m MDP. The route of agent administration: Intravenous. ADDITIONAL DRUGS AND DOSES: None. TECHNIQUE: Following injection of the radiopharmaceutical, serial blood flow images acquired. Equil ibrium blood pool images then acquired. Routine delayed images at 3 hour acquired of the areas of cl inical concern with additional focused images as needed. AREA OF INTEREST: Left ankle LIMITATIONS: None. FINDINGS: VASCULAR FLOW IMAGES: No asymmetry or focal areas of hyperemia. BLOOD POOL IMAGES: No asymmetry or focal areas of soft-tissue hyper-perfusion. BONES: Focal increased uptake in the right heel most likely degenerative. KIDNEYS: Kidneys not imaged. OTHER: No other significant finding. IMPRESSION: No significant abnormality. COMMENT: Quality measure 147: Current bone scan is compared with any available plain radiographs, p rior bone scans, and CT/MRI. TECHNICAL DOCUMENTATION: JOB ID: [id number] 2010 [employer]- All Rights Reserved Reading location - IP/workstation name: [email or web address]
== END ==
LOC: RAD 10:23
PROVIDERS: ATTEND Internal Medicine Rheumatology
DX: M25.572 Pain in left ankle and joints of left foot (principal); R22.42 Localized swelling, mass and lump, left lower limb
CPT/HCPCS: 78315; A9503; Q9969

== ENCOUNTER → 2020-04-21 | Outpatient (CLI) | payer MEDICAID ==
--- NOTE | 2020-04-21 12:19 | RADIOLOGY REPORT (SQ) ---
EXAM DESCRIPTION: CT ABD/PELVIS WITH IV ONLY IMAGES COMPLETED DATE/TIME: 04/21/2020 12:04 pm REASON FOR STUDY: ABDOMINAL PAIN R10.32 LEFT LOWER QUADRANT PAIN COMPARISON: None. TECHNIQUE: CT scan of the abdomen and pelvis performed using helical scanning technique with dynamic intravenous contrast injection. No oral contrast. Images reviewed with lung, soft tissue, and bone windows. Reconstructed coronal and sagittal MPR images reviewed. Delayed images for evaluation of the urinary system also acquired. All images stored on PACS. All CT scanners at this facility use dose modulation, iterative reconstruction, and/or weight based d osing when appropriate to reduce radiation dose to as low as reasonably achievable (ALARA). [facility]: Dose Right [facility]: CareDose [facility]: Dose Right [facility]: Teradose 4D [facility]: Nubity CONTRAST TYPE AND DOSE: contrast/concentration: Isovue 350.00 mmol/ml; Total Contrast Delivered: 100 .0 ml; Total Saline Delivered: 37.8 ml RENAL FUNCTION: None required. The patient is less than 50 years old. RADIATION DOSE: CT Rad equipment meets quality standard of care and radiation dose reduction techniq ues were employed. CTDIvol: 13.3 - 17.2 mGy. DLP: 1843 mGy-cm.. LIMITATIONS: None. FINDINGS: LOWER CHEST: Irregular 6 mm nodular opacity at the right lower lung (series 4, image 4). LIVER: Normal size. No masses. No dilated ducts. SPLEEN: Normal size. No focal lesions. PANCREAS: No masses. No significant calcifications. No adjacent inflammation or peripancreatic fluid collections. Pancreatic duct not dilated. GALLBLADDER: No identified stones by CT criteria. No inflammatory changes to suggest cholecystitis. ADRENAL GLANDS: No significant masses or asymmetry. RIGHT KIDNEY AND URETER: No solid masses. No significant calcifications. No hydronephrosis or hyd roureter. LEFT KIDNEY AND URETER: No solid masses. No significant calcifications. No hydronephrosis or hydr oureter. AORTA AND VESSELS: No aneurysm. No dissection. Renal arteries, SMA, celiac arteries are patent. Mode rate stenosis at the celiac origin from the median arcuate ligament. RETROPERITONEUM: No retroperitoneal adenopathy, hemorrhage or masses. BOWEL AND PERITONEAL CAVITY: No no evidence of intestinal obstruction. Submucosal fatty deposition w ithin the right colon, nonspecific. No evidence of focal wall thickening. APPENDIX: Normal. PELVIS: Trace pelvic fluid, likely physiologic. ABDOMINAL WALL: Small fat containing umbilical hernia. Diastases recti. No subcutaneous masses. BONES: No acute bony abnormality. No suspicious lytic or blastic osseous lesions. OTHER: No other significant finding. IMPRESSION: 1. Trace pelvic fluid, likely physiologic. 2. No other evidence of acute intra-abdominal/pelvic process. 3. 6 mm right basilar irregular nodular opacity. Follow-up as below. COMMENT: FLEISCHNER CRITERIA FOR FOLLOW-UP OF PULMONARY NODULES Incidentally detected new nodules in persons 35 or older. HIGH RISK: History of smoking or other known risk factors. 6-8 mm single solid nodule: LOW RISK: CT 6-12 mo; then consider CT 18-24 mo. HIGH RISK: CT 6-12 mo; t hen CT 18-24 mo. TECHNICAL DOCUMENTATION: JOB ID: [id number] Quality ID # [id number]: Final reports with documentation of one or more dose reduction techniques (e.g., Au tomated exposure control, adjustment of the mA and/or kV according to patient size, use of iterative reconstruction technique) 2010 [employer]- All Rights Reserved Reading location - IP/workstation name: [email or web address]
== END ==
LOC: RAD 11:24
PROVIDERS: ATTEND Internal Medicine
DX: M62.08 Separation of muscle (nontraumatic), other site (principal); K42.9 Umbilical hernia without obstruction or gangrene; R10.32 Left lower quadrant pain
CPT/HCPCS: 74177